=== PATIENT | female | born 1960 | race Caucasian/White ===

== ENCOUNTER 2017-07-13 10:21 | Emergency (ER) | payer OTHER ==
[2017-07-13] MEDS ORDERED: FENTANYL CITR 100 MCG/2 ML ONE (12:51)
[2017-07-13 12:56] LABS: Absolute Lymphocytes (CBC) 2.8 K/uL (0.7-4.9); Absolute Monocytes 0.8 K/uL (0.1-1.3); Absolute Neutrophil 6.2 K/uL (1.8-8.0); Basophils % 0.7 % (0-1.3); Eosinophils % 1.5 % (0-4.4); Hematocrit 43.7 % (36.0-45.0); Lymphocytes % 27.8 % (15.3-44.8); MCH 29.8 pg (27.0-35.0); MCV 89.8 fL (80-100); MPV 8.8 fL (7.6-11.3); Monocytes % 7.8 % (3.3-12.3); RBC Red Blood Cell Count 4.87 M/uL (3.86-4.86)
[2017-07-13 13:03] LABS: Protime INR 1.07
[2017-07-13 13:05] LABS: Bicarbonate 28 mEq/L (21-31); Glucose Level 125 mg/dL (65-120); Potassium 4.3 mEq/L (3.6-5.0); Sodium Level 136 mEq/L (135-145)
[2017-07-13 13:11] LABS: ALT/SGPT 18 IU/L (10-60); AST/SGOT 17 IU/L (10-42); Albumin 3.7 g/dL (3.2-5.5); Alkaline Phosphatase 122 IU/L (42-121); BUN Blood Urea Nitrogen 8 mg/dL (6-20); Bilirubin Direct 0.1 mg/dL (0-0.2); Bilirubin Total 0.6 mg/dL (0.3-1.2); Creatine Phosphokinase 47 IU/L (22-269); Glomerular Filtration Rate > 90 mL/min (=/>90); Magnesium 1.8 mg/dL (1.8-2.5); Protein, Total 7.9 g/dL (6.0-8.3)
[2017-07-13 13:31] LABS: Urine Blood NEGATIVE (NEG); Urine Glucose NEGATIVE (NEG); Urine Protein NEGATIVE (NEG); Urine Specific Gravity >1.030 (1.005-1.030)
--- NOTE | 2017-07-13 13:40 | RAD REPORT ---
EXAM DESCRIPTION: RAD - Chest Pa And Lat (2 Views) - 07/13/2017 1:24 pm CLINICAL HISTORY: Right-sided chest pain and back pain COMPARISON: January 2016 TECHNIQUE: PA and lateral views of the chest were obtained. FINDINGS: The lungs are normal volume. No peripheral consolidation or mass. Acute failure is not jamil pected. Patient has mild prominence of the interstitial markings that is believed to be baseline and similar to the comparison study. Single lead pacemaker remains in place. Trachea is midline. Heart size is normal and central vascul ature is within normal limits. No pleural effusion or pneumothorax seen. No acute bony finding note d. No aortic abnormality. IMPRESSION: No acute cardiopulmonary process. The above detailed chest findings are not substantial ly different from comparison.
--- NOTE | 2017-07-13 13:48 | RAD REPORT ---
EXAM DESCRIPTION: CT - Chest For Pe Angio - 07/13/2017 1:35 pm CLINICAL HISTORY: Chest pain, shortness of breath, right-sided back pain COMPARISON: Chest films same date TECHNIQUE: Dynamically enhanced 3 mm thick images of the chest were obtained during administration o f approximately 150mL Isovue 370 IV contrast. Coronal and oblique reconstruction images were generate d and reviewed. Exam utilizes a protocol to evaluate the pulmonary arterial tree. All CT scans are performed using dose optimization technique as appropriate and may include automated exposure control or mA/KV adjustment according to patient size. FINDINGS: No pulmonary emboli are identified. The aorta as imaged shows no acute or suspicious finding. No pericardial thickening or effusion. No infiltrate or mass in the lung parenchyma. No pleural effusion or pleural thickening. No mediastinal or hilar suspicious masses. No chest wall masses or abnormal axillary lymphadenopathy. Prominent thoracic spine degenerative spurring changes. No acute destructive vertebral body or rib f inding. IMPRESSION: No pulmonary emboli identified. No other significant or suspicious findings.
[2017-07-13 14:18] LABS: Urine Bacteria 20-50 /HPF (<20); Urine Culture Reflex Order REFLEXED; Urine RBC <5 /HPF (NONE SEEN)
[2017-07-13] MEDS ORDERED: ASPIRIN 81 MG CHEWABLE TABLET ONE ×2 (15:27→15:30)
[2017-07-13] MEDS ORDERED: TRAMADOL HCL 50 MG TAB ONE (15:28)
--- NOTE | 2017-07-13 16:15 | EDPHYS ---
Physician Documentation [facility] Name: Gia Doe Age: 57 yrs Sex: Female : 1960 Arrival Date: 07/13/2017 Time: 10:23 Bed 14 Private MD: ED Physician Parminder Hall HPI: 07/13 11:50 This 57 yrs old Female presents to ER via Ambulatory with complaints of Back rh1 Pain, chest pain, SOB. 11:50 The patient or guardian reports chest pain that is located primarily in the anterior rh1 aspect of right upper chest, right lateral posterior chest and right breast. Onset: 1 week(s) ago. 11:50 The pain radiates to right lateral posterior chest and anterior aspect of right upper rh1 chest. Associated signs and symptoms: Pertinent positives: cough, shortness of breath, Pertinent negatives: abdominal pain, diaphoresis, dizziness, headache, lower extremity pain, lower extremity swelling, lightheadedness, nausea, palpitations, syncope, vomiting. The chest pain is described as a heaviness, a pressure. Duration: The patient or guardian reports multiple episodes, that are intermittent. Modifying factors: The symptoms are alleviated by remaining still, the symptoms are aggravated by breathing, movement, palpation of area, twisting torso. Severity of pain: At its worst the pain was moderate in the emergency department the pain is unchanged. The patient has not experienced similar symptoms in the past. The patient has not recently seen a physician. Pt. reports pain at right scapular area for the past 1 week, that is worse with coughing, breathing, movement Pain radiates from right back around to right side of chest, and feels like "pressure, something sitting on my chest." Reports coughing for 1.5 weeks, with yellow sputum, denies any hemoptysis. Reports fever 2 days ago at 102. + SOB, worse with coughing. Denies any abdominal pain, vomiting, increased swelling in legs from her baseline, no diaphoresis. Since March she has been wearing home O2, due to persistent low O2 sat after back surgery.. Historical: - Allergies: 10:30 Codeine; hj 10:30 Morphine; hj - Home Meds: 10:30 carvedilol 50mg Oral tab 1 tab 2 times per day [Active]; Flexeril 5 mg Oral tab 1 tab 3 hj times per day [Active]; Lasix 40 mg Oral tab 1 tab once daily [Active]; levothyroxine 75 mcg tab 1 tab once daily [Active]; Lexapro 10 mg Oral tab 1 tab once daily [Active]; losartan 50 mg Oral tab 1 tab once daily [Active]; - PMHx: 10:30 Hypertension; Pacemaker; Thyroid problem; hj - PSHx: 10:30 finger surgery; Knee surgery; Tubal ligation; Cholecystectomy; partial hysterectomy; hj Carpal Tunnel Repair; back surgery; - Immunization history:: Adult Immunizations up to date. - Social history:: Smoking status: unknown. ROS: 11:50 ENT: Negative for injury, pain, and discharge. rh1 11:50 Constitutional: Positive for fever, Negative for body aches, fatigue, malaise, poor PO intake. 11:50 Cardiovascular: Positive for chest pain, Negative for edema, palpitations. 11:50 Respiratory: Positive for cough, with yellow sputum, dyspnea on exertion, shortness of breath, Negative for hemoptysis, wheezing. 11:50 Abdomen/GI: Negative for abdominal pain, nausea and vomiting. 11:50 Back: Positive for pain at rest, pain with movement, Negative for decreased range of motion. 11:50 MS/extremity: Negative for pain, paresthesias, swelling. 11:50 Skin: Negative for diaphoresis, rash. 11:50 Neuro: Negative for altered mental status, dizziness, headache, numbness, syncope, near syncope, tingling, weakness. 11:50 All other systems are negative. Exam: 11:50 Constitutional: This is a well developed, well nourished patient who is awake, alert, rh1 and in no acute distress. Head/Face: Normocephalic, atraumatic. ENT: Nares patent. No nasal discharge, no septal abnormalities noted. Tympanic membranes are normal and external auditory canals are clear. Oropharynx with no redness, swelling, or masses, exudates, or evidence of obstruction, uvula midline. Mucous membranes moist. Neck: Trachea midline, and no cervical lymphadenopathy. Supple, full range of motion without nuchal rigidity. No Meningismus. Chest/axilla: Normal chest wall appearance and motion. Nontender with no deformity. No lesions are appreciated. Cardiovascular: Regular rate and rhythm with a normal S1 and S2. No gallops, murmurs, or rubs. No JVD. No pulse deficits. Respiratory: Lungs have equal breath sounds bilaterally, clear to auscultation. No rales, rhonchi or wheezes noted. No increased work of breathing. Abdomen/GI: Soft, non-tender, with normal bowel sounds. No distension. No guarding or rebound. No evidence of tenderness throughout. 11:50 Skin: Warm, dry with normal turgor. Normal color with no rashes, no lesions, and no evidence of cellulitis. MS/ Extremity: Pulses equal, no cyanosis. Neurovascular intact. Full, normal range of motion. 11:50 Back: Exam negative for ecchymosis pain, that is moderate, of the right scapular area and right subscapular area, ROM is painful, with all movement, vertebral tenderness, is not appreciated, muscle spasm, is appreciated in the right scapular area and right subscapular area. 11:50 Musculoskeletal/extremity: DVT Exam: No signs of deep vein thrombosis. no pain, no swelling, no tenderness, negative Homans' sign noted on exam, no appreciated bluish discoloration, no erythema, no increased warmth, Calves: are non-tender, have equal circumference. 11:50 Neuro: Orientation: is normal, appropriate for stated age, to person, place \\T\\ time. Mentation: is normal, lucid, able to follow commands, Motor: is normal, moves all fours, strength is 5/5 in all extremities, Sensation: is normal, no obvious gross deficits, numbness, is not appreciated, tingling, is not appreciated, Gait: is steady, at a normal pace, without difficulty. Vital Signs: 10:30 BP 117 / 59; Pulse 86; Resp 18; Temp 97.8(TE); Pulse Ox 95% on R/A; Weight 146.51 kg; hj Height 5 ft. 8 in. (172.72 cm); Pain 10/10; 12:56 BP 127 / 76; Pulse 74; Resp 16; Temp 97.5; Pulse Ox 100% on R/A; la1 14:20 BP 124 / 65; Pulse 66; Resp 15; Pulse Ox 98% on R/A; la1 15:33 BP 123 / 64; Pulse 86; Resp 16; Temp 97.4; Pulse Ox 100% on R/A; la1 16:27 BP 130 / 64; Pulse 81; Resp 16; Temp 97.2; Pulse Ox 100% on R/A; la1 10:30 Body Mass Index 49.11 (146.51 kg, 172.72 cm) hj MDM: 11:50 Patient medically screened. [facility] 15:09 Data reviewed: vital signs, nurses notes, lab test result(s), EKG, radiologic studies, rh CT scan, plain films, and as a result, I will admit patient. Data interpreted: Pulse oximetry: on room air is 98 %. Interpretation: normal. Counseling: I had a detailed discussion with the patient and/or guardian regarding: the historical points, exam findings, and any diagnostic results supporting the discharge/admit diagnosis, lab results, radiology results, the need for further work-up and treatment in the hospital. 15:10 ED course: Pt. continues with chest pain, reports pain at right back and anterior rh1 chest, continues with SOB. Plan to admit for further evaluation of chest pain. 15:31 Physician consultation: Iram Altamirano MD was called at 15:31, was contacted at 15:31, [facility] in the emergency department to see patient at 15:31, spoke with Dr Toro who will see her in the office tomorrow. 07/13 11:49 Order name: Urine Microscopic Only; Complete Time: 14:30 [facility] 07/13 12:06 Order name: Basic Metabolic Panel; Complete Time: 13:16 07/13 12:06 Order name: BNP; Complete Time: 13:16 [facility] 07/13 12:06 Order name: CBC with Diff; Complete Time: 12:58 07/13 12:06 Order name: Ckmb; Complete Time: 13:16 07/13 12:06 Order name: CPK; Complete Time: 13:16 07/13 12:06 Order name: LFT's; Complete Time: 13:16 07/13 12:06 Order name: Magnesium; Complete Time: 13:16 07/13 12:06 Order name: PT-INR; Complete Time: 13:10 07/13 12:06 Order name: Ptt, Activated; Complete Time: 13:10 [facility] 07/13 12:06 Order name: Troponin (emerg Dept Use Only); Complete Time: 13:11 07/13 12:06 Order name: Blood Culture Adult (2) rh1 07/13 13:00 Order name: Urine Dipstick--Ancillary (enter results); Complete Time: 13:34 ag 07/13 14:19 Order name: Urine Culture EDMS 07/13 12:06 Order name: EKG; Complete Time: 12:34 rh07/13 12:06 Order name: Cardiac monitoring; Complete Time: 12:56 rh07/13 12:06 Order name: EKG - Nurse/Tech; Complete Time: 12:56 rh07/13 12:06 Order name: IV Saline Lock; Complete Time: 12:20 rh07/13 12:06 Order name: Labs collected and sent; Complete Time: 12:20 rh07/13 12:06 Order name: O2 Per Protocol; Complete Time: 12:20 rh07/13 12:06 Order name: O2 Sat Monitoring; Complete Time: 12:20 07/13 12:06 Order name: Urine Dipstick-Ancillary (obtain specimen); Complete Time: 12:56 07/13 12:06 Order name: Chest Pa And Lat (2 Views) XRAY; Complete Time: 13:43 rh07/13 13:12 Order name: CT Chest For PE Angio; Complete Time: 13:49 rh07/13 15:30 Order name: Troponin (emerg Dept Use Only); Complete Time: 16:13 ms 07/13 14:32 Order name: Misc. Order: repeat EKG and trop at 1600; Complete Time: 15:45 rh1 Administered Medications: 12:55 Drug: fentaNYL (PF) 25 mcg Route: IVP; Site: right antecubital; la1 14:32 Follow up: Response: No adverse reaction; Pain is decreased la1 15:24 Not Given (Other Intervention Used): fentaNYL (PF) 25 mcg IVP once la1 15:33 Drug: Aspirin Chewable Tablet 324 mg Route: PO; la1 15:57 Follow up: Response: No adverse reaction ss 15:33 Drug: traMADol 50 mg Route: PO; la1 15:58 Follow up: Response: No adverse reaction; Pain is decreased ss Disposition: 16:38 Co-signature as Attending Physician, Parminder Hall MD I agree with the assessment and kdr plan of care. Disposition: 07/13/17 16:14 Discharged to Home. Impression: Muscle spasm of back, Other chest pain, Shortness of breath. - Condition is Stable. - Discharge Instructions: Nonspecific Chest Pain, Muscle Cramps and Spasms, Shortness of Breath, Aspirin and Your Heart, Heat Therapy. - Prescriptions for Tramadol 50 mg Oral Tablet - take 1 tablet by ORAL route every 8 hours as needed; 12 tablet. - Medication Reconciliation Form, Thank You Letter, Antibiotic Education, Prescription Opioid Use form. - Follow up: Alex Downs; When: 1 - 2 days; Reason: Recheck today's complaints, Continuance of care, Re-evaluation by your physician. Follow up: Emergency Department; When: As needed; Reason: Fever > 102 F, If symptoms return, Trouble breathing, Worsening of condition. - Problem is new. - Symptoms have improved. Signatures: Dispatcher [employer] EDMS Parminder Hall MD MD kdr Jefferson Taylor RN RN laDora Walker NP [employer] rh1 Jose Lazaro RN RN hj Smirch, Shelby RN ss Corrections: (The following items were deleted from the chart) 12: 12:26 Misc. Order ordered. rh1 rh1 12:27 11:50 Pt. reports pain at right scapular area for the past 1 week, that is worse with rh1 coughing, breathing, movement Pain radiates from right back around to right side of chest, and feels like "pressure, something sitting on my chest." Reports coughing for 1.5 weeks, with yellow sputum, denies any hemoptysis. Reports fever 2 days ago at 102. + SOB, worse with coughing. Denies any abdominal pain, vomiting, increased swelling in legs from her baseline, no diaphoresis.. rh1 14:31 11:50 Pt. reports pain at right scapular area for the past 1 week, that is worse with rh1 coughing, breathing, movement Pain radiates from right back around to right side of chest, and feels like "pressure, something sitting on my chest." Reports coughing for 1.5 weeks, with yellow sputum, denies any hemoptysis. Reports fever 2 days ago at 102. + SOB, worse with coughing. Denies any abdominal pain, vomiting, increased swelling in legs from her baseline, no diaphoresis. Since March she has been wearing home O2, due to persistent low O2 sat after back surgery.. rh1
--- NOTE | 2017-07-13 16:15 | ER ---
Nurse's Notes [facility] Name: Gia Doe Age: 57 yrs Sex: Female : 1960 Arrival Date: 07/13/2017 Time: 10:23 Bed 14 Private MD: Diagnosis: Muscle spasm of back;Other chest pain;Shortness of breath Presentation: 07/13 10:27 Presenting complaint: Patient states: R back pain that started Friday before last and hj its getting worse; denies tingling and numbness on legs; hx of back surgery, May 2017. Transition of care: patient was not received from another setting of care. Onset of symptoms was July 13, 2017. Care prior to arrival: None. 10:27 Method Of Arrival: Ambulatory 10:27 Acuity: ANSHUL 4 hj Triage Assessment: 10:30 General: Appears in no apparent distress. uncomfortable, obese, Behavior is calm, hj cooperative, appropriate for age. Pain: Complains of pain in right low back. Musculoskeletal: Circulation, motion, and sensation intact. Capillary refill < 3 seconds. Historical: - Allergies: 10:30 Codeine; hj 10:30 Morphine; hj - Home Meds: 10:30 carvedilol 50mg Oral tab 1 tab 2 times per day [Active]; Flexeril 5 mg Oral tab 1 tab 3 hj times per day [Active]; Lasix 40 mg Oral tab 1 tab once daily [Active]; levothyroxine 75 mcg tab 1 tab once daily [Active]; Lexapro 10 mg Oral tab 1 tab once daily [Active]; losartan 50 mg Oral tab 1 tab once daily [Active]; - PMHx: 10:30 Hypertension; Pacemaker; Thyroid problem; hj - PSHx: 10:30 finger surgery; Knee surgery; Tubal ligation; Cholecystectomy; partial hysterectomy; hj Carpal Tunnel Repair; back surgery; - Immunization history:: Adult Immunizations up to date. - Social history:: Smoking status: unknown. Screenin:40 Abuse screen: Denies threats or abuse. Nutritional screening: No deficits noted. la1 Tuberculosis screening: No symptoms or risk factors identified. Fall Risk None identified. Assessment: 11:39 General: Appears in no apparent distress. Behavior is calm, cooperative. Pain: la1 Complains of pain in right low back. Neuro: Level of Consciousness is awake, alert, obeys commands, Gait is steady, Speech is normal, Facial symmetry appears normal. Cardiovascular: Capillary refill < 3 seconds Patient's skin is warm and dry. Respiratory: Airway is patent Respiratory effort is even, unlabored. GI: No signs and/or symptoms were reported involving the gastrointestinal system. : No signs and/or symptoms were reported regarding the genitourinary system. 11:40 Cardiovascular: Reports chest pain, Denies diaphoresis, lightheadedness, palpitations, la1 shortness of breath, Heart tones S1 S2 present Capillary refill < 3 seconds Rhythm is sinus rhythm. Respiratory: Airway is patent Respiratory effort is even, unlabored, Respiratory pattern is regular, symmetrical, Breath sounds are clear bilaterally. 13:11 Reassessment: Patient appears in no apparent distress at this time. No changes from la1 previously documented assessment. Patient and/or family updated on plan of care and expected duration. Pain level reassessed. 14:20 Reassessment: Patient appears in no apparent distress at this time. No changes from la1 previously documented assessment. Patient and/or family updated on plan of care and expected duration. Pain level reassessed. 14:32 Reassessment: pt to have ekg and trop repeated at 1600. la1 15:34 Reassessment: Patient appears in no apparent distress at this time. No changes from la1 previously documented assessment. Patient and/or family updated on plan of care and expected duration. Pain level reassessed. Patient is alert, oriented x 3, equal unlabored respirations, skin warm/dry/pink. Vital Signs: 10:30 BP 117 / 59; Pulse 86; Resp 18; Temp 97.8(TE); Pulse Ox 95% on R/A; Weight 146.51 kg; hj Height 5 ft. 8 in. (172.72 cm); Pain 10/10; 12:56 BP 127 / 76; Pulse 74; Resp 16; Temp 97.5; Pulse Ox 100% on R/A; la1 14:20 BP 124 / 65; Pulse 66; Resp 15; Pulse Ox 98% on R/A; la1 15:33 BP 123 / 64; Pulse 86; Resp 16; Temp 97.4; Pulse Ox 100% on R/A; la1 16:27 BP 130 / 64; Pulse 81; Resp 16; Temp 97.2; Pulse Ox 100% on R/A; la1 10:30 Body Mass Index 49.11 (146.51 kg, 172.72 cm) ED Course: 10:23 Patient arrived in ED. tw3 10:28 Triage completed. hj 10:30 Arm band placed on left wrist. hj 11:39 Jefferson Taylor, REBEKA is Primary Nurse. la1 11:40 Call light in reach. Side rails up X 1. la1 11:45 Dora Mauricio NP is PHCP. rh1 11:45 Parminder Hall MD is Attending Physician. rh1 12:26 No provider procedures requiring assistance completed. Inserted saline lock: 20 gauge la1 in right antecubital area, using aseptic technique. Blood collected. 13:14 Patient moved to radiology via wheelchair. ap2 13:15 Chest Pa And Lat (2 Views) XRAY In Process Unspecified. EDMS 13:36 CT Chest For PE Angio In Process Unspecified. EDMS 16:14 Alex Downs MD is Referral Physician. rh1 16:28 IV discontinued, intact, bleeding controlled, No redness/swelling at site. Pressure la1 dressing applied. Administered Medications: 12:55 Drug: fentaNYL (PF) 25 mcg Route: IVP; Site: right antecubital; la1 14:32 Follow up: Response: No adverse reaction; Pain is decreased la1 15:24 Not Given (Other Intervention Used): fentaNYL (PF) 25 mcg IVP once la1 15:33 Drug: Aspirin Chewable Tablet 324 mg Route: PO; la1 15:57 Follow up: Response: No adverse reaction ss 15:33 Drug: traMADol 50 mg Route: PO; la1 15:58 Follow up: Response: No adverse reaction; Pain is decreased ss Outcome: 16:14 Discharge ordered by . rh1 16:27 Discharged to home via wheelchair. la1 16:27 Condition: stable 16:27 Discharge instructions given to patient, Instructed on discharge instructions, follow up and referral plans. medication usage, Demonstrated understanding of instructions, follow-up care, medications, Prescriptions given X 1. 16:28 Patient left the ED. la1 Addendum: 07/17/2017 15:54 Addendum: Culture Results: Positive urine culture. Phone call Attempt #1 Not a working s s number. Signatures: Dispatcher [facility] Stefania Eric RN RN ss Jefferson Taylor RN RN la1 Dora Mauricio, [employer] DIRECTOR rh1 Jose Lazaro RN RN Tommy, Juliane tw3 Khadra Mendez Corrections: (The following items were deleted from the chart) 07/13 10:28 10:27 Presenting complaint: Patient states: R back pain that started Friday before last hj and its getting worse; denies tingling and numbness on legs; hj 10:33 10:30 Pulse 86bpm; Resp 18bpm; Pulse Ox 95% RA; Temp 97.8F Temporal; 146.51 kg; Height hj 5 ft. 8 in.; BMI: 49.1; Pain 01/07; hj
[2017-07-13 16:47] VITALS: O2SAT 100
[2017-07-13 16:48] VITALS: BP 130/64; TEMP 97.2
--- NOTE | 2017-07-13 22:30 | EKG ---
Test Date: 2017-07-13 Test Time: 12:37:45 Chief Airport Guide: MEASUREMENT RESULTS: Intervals: Rate: 73 RI: 166 QRSD: 88 QT: 422 QTc: 464 [place]: P: 34 RI: 166 QRS: 6 T: 13 INTERPRETIVE STATEMENTS: Normal sinus rhythm Normal ECG Compared to ECG 02/15/2016 11:28:04 No significant changes Electronically Signed On 07-13-17 22:29:49 CDT by Joe Gan
--- NOTE | 2017-07-14 07:37 | EKG ---
Test Date: 2017-07-13 Test Time: 15:48:17 E [employer] Director: MEASUREMENT RESULTS: Intervals: Rate: 67 SD: 160 QRSD: 82 QT: 424 QTc: 448 [place]: P: 34 SD: 160 QRS: 9 T: 37 INTERPRETIVE STATEMENTS: Normal sinus rhythm Normal ECG Compared to ECG 07/13/2017 12:37:45 No significant changes Electronically Signed On 07-14-17 07:37:22 CDT by Joe Gan
== END 2017-07-13 16:28 | disposition home or self-care (01) ==
LOC: ER 10:21
DX: R07.89 Other chest pain (principal); M62.830 Muscle spasm of back; I10 Essential (primary) hypertension; Z95.0 Presence of cardiac pacemaker; E07.9 Disorder of thyroid, unspecified; Z88.5 Allergy status to narcotic agent
CPT/HCPCS: 36415; 71046; 71275; 80048; 80076; 82550; 82553; 83735; 83880; 84484 ×2; 85025; 85610; 85730; 87040 ×2; 87077 ×2; 87086; 87088; 87186 ×2; 93005 ×2; 96374; 99284; J3010; Q9967; 81003; 81015

== ENCOUNTER 2018-06-19 13:39 | Emergency (ER) | payer OTHER ==
--- OUTSIDE RECORDS SUMMARY | 2018-06-19 13:42 | XMS REPORT ---
:1960 Author Organization [employer] Care Team Providers Name Role Phone Anthony Altamirano Provider Role Unavailable Allergies No Known Allergies Problems Problem Type Condition Code Onset Dates Condition Status Problem Bipolar disorder F31.9 Active Problem Edema R60.9 Active Problem Cardiac pacemaker Z95.0 Active Problem Body mass index (BMI) 45.0-49.9, Z68.42 Active adult Assessment Hypothyroidism E03.9 Active Problem Osteoarthritis of multiple joints M15.9 Active Assessment Benign essential HTN I10 Active Problem Asymptomatic hypertensive urgency I16.0 Active Problem Hypothyroidism E03.9 Active Problem Benign essential HTN I10 Active Problem Spinal stenosis of lumbosacral M48.07 Active region Problem Asthma J45.909 Active Problem Anxiety F41.9 Active Assessment Disc disease, degenerative, lumbar M51.37 Active or lumbosacral Assessment Bipolar disorder F31.9 Active Problem Hyperlipidemia, mixed E78.2 Active Problem Degenerative joint disease M19.90 Active Problem Tobacco use disorder F17.200 Active Problem Disc disease, degenerative, lumbar M51.37 Active or lumbosacral Problem Allergic rhinitis, seasonal J30.2 Active Problem Obstructive sleep apnea G47.33 Active Medications Medication Code Code Instructions Start End Status Dosage System Date Date Levothyroxine [facility] 05626746836 75 MCG Orally Active 1 tablet Sodium Once a day on an empty stomach in the morning Cozaar [facility] 84238667244 100 MG Orally Active 1 tablet Once a day Lyrica [facility] 95468679463 50MG orally Active 1 capsule Twice a day Lamictal [facility] 86181295313 100 MG Orally Active 2 tablets Twice a day Coreg [facility] 76157960750 25 MG Orally Active 1 tablet once a day Results No Known Results Summary Purpose [employer] Submission
--- OUTSIDE RECORDS SUMMARY | 2018-06-19 13:42 | XMS REPORT ---
:1960 Author Organization eClinicalWorks Care Team Providers Name Role Phone Anthony Altamirano Provider Role Unavailable Allergies No Known Allergies Problems Problem Type Condition Code Onset Dates Condition Status Problem Bipolar disorder F31.9 Active Problem Edema R60.9 Active Problem Cardiac pacemaker Z95.0 Active Problem Body mass index (BMI) 45.0-49.9, Z68.42 Active adult Problem Osteoarthritis of multiple joints M15.9 Active Problem Asymptomatic hypertensive urgency I16.0 Active Problem Hypothyroidism E03.9 Active Problem Benign essential HTN I10 Active Problem Spinal stenosis of lumbosacral M48.07 Active region Problem Asthma J45.909 Active Problem Anxiety F41.9 Active Assessment Hyperlipidemia, mixed E78.2 Active Problem Hyperlipidemia, mixed E78.2 Active Problem Degenerative joint disease M19.90 Active Problem Tobacco use disorder F17.200 Active Problem Disc disease, degenerative, lumbar M51.37 Active or lumbosacral Problem Allergic rhinitis, seasonal J30.2 Active Problem Obstructive sleep apnea G47.33 Active Medications Medication Code Code Instructions Start End Date Status Dosage System Date Simvastatin [facility][NOTE 3] 88701616185 20 MG Orally Active 1 tablet in Once a day the evening Results No Known Results Summary Purpose eClinicalWorks Submission
--- OUTSIDE RECORDS SUMMARY | 2018-06-19 13:42 | XMS REPORT ---
:1960 Author Organization eClinicalWorks Care Team Providers Name Role Phone Anthony Altamirano Provider Role Unavailable Allergies No Known Allergies Problems Problem Type Condition Code Onset Dates Condition Status Assessment Non compliance w medication regimen Z91.14 Active Assessment Body mass index (BMI) 45.0-49.9, Z68.42 Active adult Assessment Cardiac pacemaker Z95.0 Active Assessment Obstructive sleep apnea G47.33 Active Assessment Disc disease, degenerative, lumbar M51.37 Active or lumbosacral Assessment Tobacco use disorder F17.200 Active Problem Disc disease, degenerative, lumbar M51.37 Active or lumbosacral Assessment Anxiety F41.9 Active Problem Obstructive sleep apnea G47.33 Active Assessment Bipolar disorder F31.9 Active Problem Bipolar disorder F31.9 Active Problem Edema R60.9 Active Problem Cardiac pacemaker Z95.0 Active Problem Body mass index (BMI) 45.0-49.9, Z68.42 Active adult Problem Osteoarthritis of multiple joints M15.9 Active Assessment Benign essential HTN I10 Active Assessment Hypothyroidism E03.9 Active Problem Asymptomatic hypertensive urgency I16.0 Active Assessment Hyperlipidemia, mixed E78.2 Active Problem Hypothyroidism E03.9 Active Problem Benign essential HTN I10 Active Problem Spinal stenosis of lumbosacral M48.07 Active region Problem Asthma J45.909 Active Problem Anxiety F41.9 Active Assessment Acute cystitis without hematuria N30.00 Active Assessment Asymptomatic hypertensive urgency I16.0 Active Problem Hyperlipidemia, mixed E78.2 Active Problem Degenerative joint disease M19.90 Active Problem Tobacco use disorder F17.200 Active Problem Allergic rhinitis, seasonal J30.2 Active Medications Medication Code Code Instructions Start End Status Dosage System Date Date Klor-Con M10 [facility] 22868178698 10 MEQ Orally Active 1/2 Twice a day tablet with food Singulair ND 28219865648 10 MG Orally Active 1 tablet Once a day in the evening Flonase ND 14005074537 50 MCG/ACT Active 1 spray Nasally Once a in each day nostril Simvastatin ND 66865775577 20 MG Orally Active 1 tablet Once a day in the evening Levothyroxine [facility] 38728317273 75 MCG Orally Active 1 tablet Sodium Once a day on an empty stomach in the morning Lexapro [facility] 50639888446 20 MG Orally Active 0.5 Once a day tablet Coreg [facility] 79803267688 25MG Orally Active one once a day Vistaril [facility] 38359818582 25 MG Orally Active 1 capsule every 8 hrs PRN as needed anxiety Centrum Silver [facility] 95709899133 - Orally Active not defined Lamictal [facility] 00507018514 100 MG Orally Active 2 tablets Twice a day Cyclobenzaprine [facility] 77553509976 10 MG Orally Active 1 tablet HCl Three times a as needed day Simvastatin [facility] 86170045558 20MG Active take 1 tablet once daily orally Levothyroxine [facility] 78719375961 75MCG Active TAKE ONE Sodium TABLET BY MOUTH ONCE DAILY Nitrofurantoin [facility] 67356012384 100 MG Orally Nov 04Oct Active 1 capsule Monohyd Macro every 12 hrs 2017 12, with food 2018 Klor-Con M10 [facility] 92065182191 10 MEQ Orally Active 1/2 Twice a day tablet with food Furosemide [facility] 03588942378 20 MG Orally Inactive 1 tablet Once a day ProAir HFA [facility] 63087584684 108 (90 Base) Active 2 puffs MCG/ACT as needed Inhalation every 6 hrs Lyrica [facility] 72309054871 50MG orally BID Active TAKE ONE CAPSULE BY MOUTH TWICE DAILY Cozaar [facility] 92335712765 100 MG Orally Active 1 tablet Once a day Cozaar [facility] 24889464885 100 MG Orally Active 1 tablet Once a day Coreg [facility] 39568635342 25 MG Orally Active one once a day Hydrocodone-Acetam [facility] 07920139388 10-325 MG Aug Inactive 1 tablet inophen Orally every 6 07, as needed hrs 2017 Results No Known Results Summary Purpose eClinicalWorks Submission
--- OUTSIDE RECORDS SUMMARY | 2018-06-19 13:42 | XMS REPORT ---
:1960 Author Organization eClinicalWorks Care Team Providers Name Role Phone AltamiranoAnthony Provider Role Unavailable Allergies, Adverse Reactions, Alerts Substance Reaction Event Type Morphine Sulfate Itchy/Rash Drug Allergy Problems Problem Type Condition Code Onset Dates Condition Status Assessment Non compliance w medication regimen Z91.14 Active Assessment Spinal stenosis of lumbosacral M48.07 Active region Assessment Cardiac pacemaker Z95.0 Active Assessment Body mass index (BMI) 45.0-49.9, Z68.42 Active adult Assessment Obstructive sleep apnea G47.33 Active Assessment Disc disease, degenerative, lumbar M51.37 Active or lumbosacral Assessment Tobacco use disorder F17.200 Active Assessment Anxiety F41.9 Active Assessment Bipolar disorder F31.9 Active Problem Obstructive sleep apnea G47.33 Active Assessment 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 Problem Bipolar disorder F31.9 Active Assessment Hyperlipidemia, mixed E78.2 Active Problem Cardiac pacemaker Z95.0 Active Problem Benign essential HTN I10 Active Problem Edema R60.9 Active Problem Asymptomatic hypertensive urgency I16.0 Active Problem Body mass index (BMI) 45.0-49.9, Z68.42 Active adult Assessment Medicare annual wellness visit, Z00.00 Active subsequent Assessment Pain in left knee M25.562 Active Problem 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 Assessment Hypothyroidism E03.9 Active Problem Asthma J45.909 Active Problem Hypothyroidism E03.9 Active Problem Osteoarthritis of multiple joints M15.9 Active Problem Spinal stenosis of lumbosacral M48.07 Active region Assessment Osteoarthritis of multiple joints M15.9 Active Problem Anxiety F41.9 Active Assessment Allergic rhinitis, seasonal J30.2 Active Problem Tobacco use disorder F17.200 Active Assessment Encounter for screening mammogram Z12.31 Active for breast cancer Assessment Benign essential HTN I10 Active Assessment Other chronic pain G89.29 Active Problem Degenerative joint disease M19.90 Active Assessment Screening for colon cancer Z12.11 Active Problem Disc disease, degenerative, lumbar M51.37 Active or lumbosacral Problem Allergic rhinitis, seasonal J30.2 Active Problem Hyperlipidemia, mixed E78.2 Active Medications Medication Code Code Instructions Start End Status Dosage System Date Date Lamictal [facility] 02792606807 100 MG Orally Active 2 tablets Twice a day Lexapro [facility] 84370409575 20 MG Orally Active 0.5 tablet Once a day Centrum Silver [facility] 59242640950 - Orally Active not defined Lyrica [facility] 23891371840 50MG orally BID Active TAKE ONE CAPSULE BY MOUTH TWICE DAILY Risperidone [facility] 67314315155 0.25 MG Orally Active 1 tablet Once a day Cozaar [facility] 59093033705 100 MG Orally Active 1 tablet Once a day Simvastatin ND 42170614388 20 MG Orally Active 1 tablet Once a day in the evening Escitalopram [facility] 35901341656 10 MG Orally Active 1 tablet Oxalate Once a day Flonase [facility] 79877405453 50 MCG/ACT Active 1 spray in Nasally Once a each day nostril Flonase [facility] 03280321219 50 MCG/ACT Active 1 spray in Nasally Once a each day nostril Klor-Con M10 [facility] 76894112318 10 MEQ Orally Active 1/2 tablet Twice a day with food Amlodipine ND 99987861733 5 MG Orally Apr 28, Active 1 tablet Besylate Once a day 2019 Coreg [facility] 57674447214 25 MG Orally Active one once a day Chantix Starting [facility] 51453413766 0.5 MG X 11 & 1 Apr 28, May Active as Month Jarvis MG X 42 Orally 2018, directed Use as directed 2018 Levothyroxine [facility] 47626205936 75 MCG Orally Active 1 tablet Sodium Once a day on an empty stomach in the morning ProAir HFA [facility] 35688133347 108 (90 Base) Active 2 puffs as MCG/ACT needed Inhalation every 6 hrs Singulair [facility] 07262518523 10 MG Orally Active 1 tablet Once a day in the evening Vistaril [facility] 94465045241 25 MG Orally Active 1 capsule every 8 hrs PRN as needed anxiety Cyclobenzaprine [facility] 64835063919 10 MG Orally Active 1 tablet HCl Three times a as needed day Singulair [facility] 09483992830 10 MG Orally Active 1 tablet Once a day in the evening Results No Known Results Summary Purpose eClinicalWorks Submission
--- OUTSIDE RECORDS SUMMARY | 2018-06-19 13:42 | XMS REPORT ---
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 Problem Asthma J45.909 Active Problem Hypothyroidism E03.9 Active Problem Osteoarthritis of multiple joints M15.9 Active Problem Spinal stenosis of lumbosacral M48.07 Active region Problem Anxiety F41.9 Active Problem Tobacco use disorder F17.200 Active Problem Degenerative joint disease M19.90 Active Problem Disc disease, degenerative, lumbar M51.37 Active or lumbosacral Problem Allergic rhinitis, seasonal J30.2 Active Problem Obstructive sleep apnea G47.33 Active Problem Hyperlipidemia, mixed E78.2 Active Problem Bipolar disorder F31.9 Active Medications No Known Medications Results No Known Results Summary Purpose eClinicalWorks Submission
--- OUTSIDE RECORDS SUMMARY | 2018-06-19 13:43 | XMS REPORT ---
:1960 Author Organization eClinicalWorks Care Team Providers Name Role Phone Phillip Josue Provider Role Unavailable Allergies, Adverse Reactions, Alerts [...] disorder F17.200 Active Assessment Encounter for screening colonoscopy Z12.11 Active Problem Degenerative joint disease M19.90 Active Problem Disc disease, degenerative, lumbar M51.37 Active or lumbosacral Problem Allergic rhinitis, seasonal J30.2 Active Problem Obstructive sleep apnea G47.33 Active Problem Hyperlipidemia, mixed E78.2 Active Problem Bipolar disorder F31.9 Active Medications Medication Code Code Instructions Start End Status Dosage System Date Date Levothyroxine [facility] 78513360766 75 MCG Orally Active 1 tablet Sodium Once a day on an empty stomach in the morning Simvastatin ND 73209277217 20 MG Orally Active 1 tablet Once a day in the evening Centrum Silver [facility] 48483843265 - Orally Active not defined Cozaar ND 59247791529 100 MG Orally Active 1 tablet Once a day Singulair ND 47777334817 10 MG Orally Active 1 tablet Once a day in the evening Flonase [facility] 82581273159 50 MCG/ACT Active 1 spray in Nasally Once a each day nostril Lamictal ND 76615641833 100 MG Orally Active 2 tablets Twice a day Chantix Starting [facility] 36186937016 0.5 MG X 11 & 1 Active as Month Jarvis MG X 42 Orally directed Use as directed Lyrica [facility] 17245390258 50MG orally BID Active TAKE ONE CAPSULE BY MOUTH TWICE DAILY Escitalopram [facility] 75103676807 10 MG Orally Active 1 tablet Oxalate Once a day Risperidone [facility] 02007475196 0.25 MG Orally Active 1 tablet Once a day ProAir HFA [facility] 43649799383 108 (90 Base) Active 2 puffs as MCG/ACT needed Inhalation every 6 hrs PRN Shortness of breath, Wheeezing, COugh Macrobid [facility] 04089915281 100 MG Orally May Active 1 capsule every 12 hrs 05, 10, with food 2018 2018 Coreg [facility] 22620226286 25 MG Orally Active one once a day Cyclobenzaprine [facility] 35540262857 10 MG Orally Active 1 tablet HCl Three times a as needed day Lexapro [facility] 13277824095 20 MG Orally Active 0.5 tablet Once a day Vistaril [facility] 43600810085 25 MG Orally Active 1 capsule every 8 hrs PRN as needed anxiety Amlodipine [facility] 93639382659 5 MG Orally Active 1 tablet Besylate Once a day Results No Known Results Summary Purpose eClinicalWorks Submission
--- OUTSIDE RECORDS SUMMARY | 2018-06-19 13:43 | XMS REPORT ---
:1960 Author Organization eClinicalWorks Care Team Providers Name Role Phone Phillip Josue Provider Role Unavailable Allergies No Known Allergies [...]
--- OUTSIDE RECORDS SUMMARY | 2018-06-19 13:43 | XMS REPORT ---
:1960 Author Organization eClinicalWorks Care Team Providers Name Role Phone Altamirano, [facility] Provider Role Unavailable Allergies, Adverse Reactions, Alerts Substance Reaction Event Type Morphine Sulfate Itchy/Rash Drug Allergy Problems Problem Type Condition Code Onset Dates Condition Status Assessment Spinal stenosis of lumbosacral M48.07 Active region Assessment Allergic rhinitis, seasonal J30.2 Active Assessment Body mass index (BMI) 45.0-49.9, Z68.42 Active adult Assessment Non compliance w medication regimen Z91.14 Active Assessment Cardiac pacemaker Z95.0 Active Assessment Obstructive sleep apnea G47.33 Active Assessment Disc disease, degenerative, lumbar M51.37 Active or lumbosacral Assessment Tobacco use disorder F17.200 Active Assessment Anxiety F41.9 Active Problem Obstructive sleep apnea G47.33 Active Assessment Bipolar disorder F31.9 Active Problem Bipolar disorder F31.9 Active Assessment Pain in left knee M25.562 Active Problem Cardiac pacemaker Z95.0 Active Problem Benign essential HTN I10 Active Problem Edema R60.9 Active Problem Asymptomatic hypertensive urgency I16.0 Active Problem Body mass index (BMI) 45.0-49.9, Z68.42 Active adult Assessment Hypothyroidism E03.9 Active Assessment Hyperlipidemia, mixed E78.2 Active Problem 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 Assessment 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 Problem Asthma J45.909 Active Problem Hypothyroidism E03.9 Active Problem Osteoarthritis of multiple joints M15.9 Active Problem Spinal stenosis of lumbosacral M48.07 Active region Assessment Other chronic pain G89.29 Active Problem Anxiety F41.9 Active Assessment Osteoarthritis of multiple joints M15.9 Active Problem Tobacco use disorder F17.200 Active Assessment Benign essential HTN I10 Active Problem Degenerative joint disease M19.90 Active Problem Disc disease, degenerative, lumbar M51.37 Active or lumbosacral Problem Allergic rhinitis, seasonal J30.2 Active Problem Hyperlipidemia, mixed E78.2 Active Medications Medication Code Code Instructions Start End Status Dosage System Date Date Simvastatin [facility] 22858349735 20 MG Orally Active 1 tablet Once a day in the evening Coreg [facility] 12541461076 25 MG Orally Active one once a day Escitalopram [facility] 89212970198 10 MG Orally Active 1 tablet Oxalate Once a day Risperidone [facility] 14898178222 0.25 MG Orally Active 1 tablet Once a day Centrum Silver [facility] 41220356545 - Orally Active not defined Lexapro [facility] 91620592077 20 MG Orally Active 0.5 tablet Once a day Flonase [facility] 02257506418 50 MCG/ACT Active 1 spray in Nasally Once a each day nostril Singulair [facility] 11447836399 10 MG Orally Active 1 tablet Once a day in the evening Cozaar [facility] 88250987952 100 MG Orally Active 1 tablet Once a day Amlodipine [facility] 96534500454 5 MG Orally Active 1 tablet Besylate Once a day Cyclobenzaprine [facility] 00949092988 10 MG Orally Active 1 tablet HCl Three times a as needed day Lyrica [facility] 96453660419 50MG orally BID Active TAKE ONE CAPSULE BY MOUTH TWICE DAILY Chantix Starting [facility] 73926669524 0.5 MG X 11 & 1 Active as Month Jarvis MG X 42 Orally directed Use as directed Levothyroxine [facility] 93345687539 75 MCG Orally Active 1 tablet Sodium Once a day on an empty stomach in the morning ProAir HFA [facility] 63871067804 108 (90 Base) Active 2 puffs as MCG/ACT needed Inhalation every 6 hrs PRN Shortness of breath, Wheeezing, COugh Lamictal [facility] 86091112068 100 MG Orally Active 2 tablets Twice a day Vistaril [facility] 56391264906 25 MG Orally Active 1 capsule every 8 hrs PRN as needed anxiety Results No Known Results Summary Purpose eClinicalWorks Submission
--- OUTSIDE RECORDS SUMMARY | 2018-06-19 13:43 | XMS REPORT ---
[...] Start End Date Status Dosage System Date Macrobid [facility] 42070566772 100 MG Orally June 02, June 07, Active 1 capsule every 12 hrs 2018 2018 with food Results No Known Results Summary Purpose eClinicalWorks Submission
--- NOTE | 2018-06-19 14:34 | RAD REPORT ---
EXAM DESCRIPTION: RAD - Chest Single View - 06/19/2018 2:25 pm CLINICAL HISTORY: Headache, dizziness, cough COMPARISON: June 2017 TECHNIQUE: AP portable chest image was obtained 1421 hours . FINDINGS: Lungs are clear. Heart and vasculature are normal. No measurable pleural effusion and no p neumothorax. No acute bony abnormality seen. No acute aortic findings suspected. Left subclavian pace maker is in place. IMPRESSION: No acute cardiopulmonary process. No significant interval change.
[2018-06-19 14:48] LABS: Absolute Lymphocytes (CBC) 3.8 K/uL (0.7-4.9); Absolute Monocytes 0.6 K/uL (0.1-1.3); Absolute Neutrophil 3.6 K/uL (1.8-8.0); Basophils % 0.7 % (0-1.3); Eosinophils % 1.9 % (0-4.4); Hematocrit 43.6 % (36.0-45.0); Lymphocytes % 45.5 % (15.3-44.8); Monocytes % 7.8 % (3.3-12.3); RBC Red Blood Cell Count 4.79 M/uL (3.86-4.86)
[2018-06-19 14:49] LABS: Protime INR 1.13
--- NOTE | 2018-06-19 14:55 | RAD REPORT ---
EXAM DESCRIPTION: CT - Head Brain Wo Cont - 06/19/2018 2:40 pm CLINICAL HISTORY: Headache, dizziness, blurred vision COMPARISON: July 2008 TECHNIQUE: Axial 5 mm thick images of the head were obtained without IV contrast. All CT scans are performed using dose optimization technique as appropriate and may include automated exposure control or mA/KV adjustment according to patient size. FINDINGS: No intracranial hemorrhage, mass, edema or shift of mid-line structures. No acute infarcti on changes seen. No abnormal extra-axial fluid collections. Ventricles are normal. Mastoid air cells and visualized portions of the paranasal sinuses are clear. No acute bony findings. IMPRESSION: Negative non-contrast CT head examination for acute finding. No significant change from 2008.
[2018-06-19 15:07] LABS: ALT/SGPT 20 U/L (12-78); AST/SGOT 12 U/L (15-37); Albumin 3.3 g/dL (3.4-5.0); Alkaline Phosphatase 92 U/L (45-117); BUN Blood Urea Nitrogen 16 mg/dL (7-18); Bicarbonate 27 mmol/L (21-32); Bilirubin Direct 0.2 mg/dL (0-0.2); Bilirubin Total 0.5 mg/dL (0.2-1.0); Glucose Level 96 mg/dL (74-106); Magnesium 1.9 mg/dL (1.8-2.4); NT PRO-BNP 77 pg/mL (<125); Protein, Total 7.1 g/dL (6.4-8.2); Sodium Level 142 mmol/L (136-145); Troponin (Emerg Dept Use Only) < 0.02 ng/mL (0.0-0.045)
[2018-06-19] MEDS ORDERED: METOCLOPRAMIDE 10 MG/2mL INJ ONE (17:05)
[2018-06-19] MEDS ORDERED: DIPHENHYDRAMINE 50 MG/ML VIAL ONE (17:05)
[2018-06-19] MEDS ORDERED: NA CHLORIDE 0.9% 100 ML IV ONE (17:05)
[2018-06-19] MEDS ORDERED: KETOROLAC 30 MG/ML INJ ONE (17:05)
--- NOTE | 2018-06-19 17:14 | ER ---
Nurse's Notes [facility] Name: Gia Doe Age: 58 yrs Sex: Female : 1960 Arrival Date: 06/19/2018 Time: 13:40 Bed 19 Private MD: Anthony Altamirano Diagnosis: Headache;Strain of muscle, fascia and tendon at neck level Presentation: 06/19 13:56 Presenting complaint: Patient states: headache since Friday, head and shoulders. ch then I got dizzy, and had blurred vision. my doctor said to come ot the er. Transition of care: patient was not received from another setting of care. Onset of symptoms was June 17, 2018. Risk Assessment: Do you want to hurt yourself or someone else? Patient reports no desire to harm self or others. Initial Sepsis Screen: Does the patient meet any 2 criteria? No. Patient's initial sepsis screen is negative. Does the patient have a suspected source of infection? No. Patient's initial sepsis screen is negative. Care prior to arrival: None. 13:56 Method Of Arrival: Ambulatory 13:56 Acuity: ANSHUL 3 Triage Assessment: 13:58 Headache History: The patient has had previous headaches and this one is similar to previous episodes. General: Appears in no apparent distress. uncomfortable, Behavior is calm, cooperative, appropriate for age. Pain: Complains of pain in head, anterior aspect of right shoulder, posterior aspect of right shoulder, anterior aspect of left shoulder, posterior aspect of left shoulder and back of head Pain currently is 2 out of 10 on a pain scale. at worst was 8 out of 10 on a pain scale. Pain began gradually, 2-3 days ago. Also complains of nausea. Neuro: Level of Consciousness is awake, alert, obeys commands, Oriented to person, place, time, situation. Historical: - Allergies: 13:58 Codeine; 13:58 Morphine (agitation); - PMHx: 13:58 Hypertension; Pacemaker; Thyroid problem; Depression; - PSHx: 13:58 finger surgery; Knee surgery; Tubal ligation; Cholecystectomy; partial hysterectomy; Carpal Tunnel Repair; back surgery; - Immunization history:: Adult Immunizations up to date, Flu vaccine is up to date. - Social history:: Smoking status: Patient uses tobacco products, smokes one-half pack cigarettes per day, Patient/guardian denies using alcohol, street drugs. - Ebola Screening: : Patient negative for fever greater than or equal to 101.5 degrees Fahrenheit, and additional compatible Ebola Virus Disease symptoms Patient denies exposure to infectious person Patient denies travel to an Ebola-affected area in the 21 days before illness onset No symptoms or risks identified at this time. Screenin:20 Abuse screen: Denies threats or abuse. Denies injuries from another. Nutritional sv screening: No deficits noted. Tuberculosis screening: No symptoms or risk factors identified. Fall Risk None identified. Assessment: 14:20 General: Appears in no apparent distress. uncomfortable, well groomed, well developed, sv Behavior is calm, cooperative, appropriate for age. Pain: Complains of pain in top of head and forehead Pain currently is 2 out of 10 on a pain scale. Quality of pain is described as throbbing, Pain began 2-3 days ago. Is continuous. Neuro: Level of Consciousness is awake, alert, obeys commands, Oriented to person, place, time, situation, Moves all extremities. Full function Gait is steady, Speech is normal, Facial symmetry appears normal, Reports her dizziness was 2 days ago and has resolved.. Denies dizziness. Respiratory: Airway is patent Respiratory effort is even, unlabored, Respiratory pattern is regular, symmetrical, Denies shortness of breath. Derm: Skin is pink, warm \T\ dry. Musculoskeletal: Range of motion: intact in all extremities. 15:08 Reassessment: Patient appears in no apparent distress at this time. No changes from sv previously documented assessment. Patient and/or family updated on plan of care and expected duration. Pain level reassessed. Patient is alert, oriented x 3, equal unlabored respirations, skin warm/dry/pink. 15:54 Reassessment: Patient appears in no apparent distress at this time. No changes from sv previously documented assessment. Patient and/or family updated on plan of care and expected duration. Pain level reassessed. Patient is alert, oriented x 3, equal unlabored respirations, skin warm/dry/pink. 17:30 Reassessment: Patient appears in no apparent distress at this time. Patient and/or sv family updated on plan of care and expected duration. Pain level reassessed. Pt resting with eyes closed. Respirations even and unlabored. 18:49 Reassessment: Patient appears in no apparent distress at this time. Patient and/or sv family updated on plan of care and expected duration. Pain level reassessed. Patient is alert, oriented x 3, equal unlabored respirations, skin warm/dry/pink. Patient denies pain at this time. Patient states feeling better. Patient states symptoms have improved. Vital Signs: 13:58 BP 126 / 99; Pulse 62; Resp 18; Temp 98.2; Pulse Ox 98% on R/A; Weight 129.27 kg; ch Height 5 ft. 8 in. (172.72 cm); Pain 2/10; 14:31 BP 120 / 71 LA Supine (auto/reg); Pulse 60; sv 14:33 BP 106 / 87 LA Sitting (auto/reg); Pulse 64; sv 14:35 BP 129 / 81 LA Standing (auto/reg); Pulse 65; sv 15:03 BP 129 / 81; Pulse 69; Resp 17; Pulse Ox 92% on R/A; sv 15:51 BP 127 / 84; Pulse 66; Resp 16; Pulse Ox 95% 2 lpm ; sv 17:00 BP 112 / 77; Pulse 66; Resp 16; Pulse Ox 99% ; sv 18:48 BP 104 / 62; Pulse 70; Resp 16; Pulse Ox 99% ; sv 13:58 Body Mass Index 43.33 (129.27 kg, 172.72 cm) ch 14:35 Pt reports dizziness sv 15:03 Pt placed on O2 \T\ 2L per NC. O2 sat up to 96%. sv ED Course: 13:40 Patient arrived in ED. as 13:40 Anthony Altamirano DO is Private Physician. as 13:57 Triage completed. ch 13:58 Arm band placed on left wrist. Patient placed in an exam room, on a stretcher. ch 14:00 Enrike Kan NP is PHCP. pm1 14:00 Jonathan Casas MD is Attending Physician. pm1 14:20 Patient has correct armband on for positive identification. Placed in gown. Bed in low sv position. Call light in reach. equipment monitor phototypesetting on. Pulse ox on. NIBP on. Door closed. Head of bed lowered. 14:22 Doreen Nur, REBEKA is Primary Nurse. sv 14:24 X-ray completed. Portable x-ray completed in exam room. Patient tolerated procedure jb2 well. 14:25 XRAY Chest (1 view) In Process Unspecified. EDMS 14:25 Initial lab(s) drawn, by me, sent to lab. Inserted saline lock: 20 gauge in right sv antecubital area, using aseptic technique. Blood collected. Flushed right antecubital with 5 ml normal saline. 14:38 Basic Metabolic Panel Sent. sv 14:39 CT Head Brain wo Cont In Process Unspecified. EDMS 14:39 CT completed. Patient tolerated procedure well. Patient moved to CT via wheelchair. Patient moved back from CT. 14:54 EKG done, by [employer] technical architect. reviewed by Enrike Kan NP. at1 18:49 No provider procedures requiring assistance completed. IV discontinued, intact, sv bleeding controlled, No redness/swelling at site. Pressure dressing applied. Administered Medications: 16:58 Drug: Benadryl 25 mg Route: IVP; Site: right antecubital; sv 17:30 Follow up: Response: No adverse reaction; Marked relief of symptoms sv 17:00 Drug: TORadol 30 mg Route: IVP; Site: right antecubital; sv 17:30 Follow up: Response: No adverse reaction; Marked relief of symptoms sv 17:03 Drug: Reglan 10 mg {Note: to be given over 15 minutes.} Route: IVP; Site: right sv antecubital; 17:18 Follow up: Response: No adverse reaction sv Outcome: 17:14 Discharge ordered by MD. pm1 18:49 Discharged to home ambulatory. sv 18:49 Condition: stable 18:49 Discharge instructions given to patient, Instructed on discharge instructions, follow up and referral plans. no drinking with medication, no driving heavy equipment, medication usage, Demonstrated understanding of instructions, follow-up care, medications, Prescriptions given X 1. 19:09 Patient left the ED. aa1 Signatures: Dispatcher [employer] EDMS Mignon Colbert RN RN ch Verde, Stephanie, RN RN sv Autenrieth, Alissa, RN RN aa1 Cameron Guzman jbChrystal Gann Amelia as Gonzales, Amanda, general road production manager EKG Tat1 Enrike Kan, CAFETERIA MANAGER CAFETERIA MANAGER pm1 Corrections: (The following items were deleted from the chart) 15:08 15:03 BP 129 / 81; Pulse 69bpm; Resp 17bpm; Pulse Ox 92% RA; sv sv 15:54 14:35 BP 129 / 81 Standing Auto L Arm Regular; Pulse 65bpm; sv sv
--- NOTE | 2018-06-19 17:14 | EDPHYS ---
Physician Documentation [facility] Name: Gia Doe Age: 58 yrs Sex: Female : 1960 Arrival Date: 06/19/2018 Time: 13:40 Bed 19 Private MD: [facility] ED Physician Jonathan Casas HPI: 06/19 14:10 This 58 yrs old Female presents to ER via Ambulatory with complaints of pm1 Headache. 14:10 The patient complains of pain to the top of head, left base of the skull and right base pm1 of the skull. The patient describes the headache as aching, constant. Onset: The symptoms/episode began/occurred 2 day(s) ago. Associated signs and symptoms: Pertinent positives: dizziness, blurred vision, Pertinent negatives: fever, rash, weakness. Severity of symptoms: in the emergency department the pain is unchanged. Headache History: Denies prior headaches. The symptoms are alleviated by remaining still, the symptoms are aggravated by headache and dizziness aggravated by changes in position. The patient has not experienced similar symptoms in the past. The patient has not recently seen a physician, the patient's primary care provider is Dr. Altamirano. Historical: - Allergies: 13:58 Codeine; ch 13:58 Morphine (agitation); ch - PMHx: 13:58 Hypertension; Pacemaker; Thyroid problem; Depression; ch - PSHx: 13:58 finger surgery; Knee surgery; Tubal ligation; Cholecystectomy; partial hysterectomy; ch Carpal Tunnel Repair; back surgery; - Immunization history:: Adult Immunizations up to date, Flu vaccine is up to date. - Social history:: Smoking status: Patient uses tobacco products, smokes one-half pack cigarettes per day, Patient/guardian denies using alcohol, street drugs. - Ebola Screening: : Patient negative for fever greater than or equal to 101.5 degrees Fahrenheit, and additional compatible Ebola Virus Disease symptoms Patient denies exposure to infectious person Patient denies travel to an Ebola-affected area in the 21 days before illness onset No symptoms or risks identified at this time. ROS: 14:10 Constitutional: Negative for fever, chills, and weight loss, Eyes: Negative for injury, pm1 pain, redness, and discharge, ENT: Negative for injury, pain, and discharge, Neck: Negative for injury, pain, and swelling, Cardiovascular: Negative for chest pain, palpitations, and edema, Respiratory: Negative for shortness of breath, cough, wheezing, and pleuritic chest pain, Abdomen/GI: Negative for abdominal pain, nausea, vomiting, diarrhea, and constipation, Back: Negative for injury and pain, : Negative for injury, bleeding, discharge, and swelling, MS/Extremity: Negative for injury and deformity, Skin: Negative for injury, rash, and discoloration. 14:10 Neuro: Positive for dizziness, headache, Negative for numbness, tingling, weakness. Exam: 14:10 Constitutional: This is a well developed, well nourished patient who is awake, alert, pm1 and in no acute distress. Eyes: Pupils equal round and reactive to light, extra-ocular motions intact. Lids and lashes normal. Conjunctiva and sclera are non-icteric and not injected. Cornea within normal limits. Periorbital areas with no swelling, redness, or edema. 14:10 Chest/axilla: Normal chest wall appearance and motion. Nontender with no deformity. No lesions are appreciated. Cardiovascular: Regular rate and rhythm with a normal S1 and S2. No gallops, murmurs, or rubs. Normal PMI, no JVD. No pulse deficits. Respiratory: Lungs have equal breath sounds bilaterally, clear to auscultation and percussion. No rales, rhonchi or wheezes noted. No increased work of breathing, no retractions or nasal flaring. Abdomen/GI: Soft, non-tender, with normal bowel sounds. No distension or tympany. No guarding or rebound. No evidence of tenderness throughout. Back: No spinal tenderness. No costovertebral tenderness. Full range of motion. Skin: Warm, dry with normal turgor. Normal color with no rashes, no lesions, and no evidence of cellulitis. MS/ Extremity: Pulses equal, no cyanosis. Neurovascular intact. Full, normal range of motion. 14:10 Head/face: Noted is no obvious of injury or deformity except tenderness, that is moderate, of the right base of the skull and left base of the skull and top of head. 14:10 Neck: External neck: tenderness, of the left trapezius and right trapezius, muscle spasm. 14:10 Neuro: Orientation: is normal, Mentation: is normal, Cranial nerves: CN II- XII are normal as tested, Cerebellar function: normal finger to nose testing, Motor: moves all fours, strength is normal, strength is 5/5 in all extremities, Sensation: is normal, no obvious gross deficits, Gait: is steady, at a normal pace, without difficulty. Vital Signs: 13:58 BP 126 / 99; Pulse 62; Resp 18; Temp 98.2; Pulse Ox 98% on R/A; Weight 129.27 kg; ch Height 5 ft. 8 in. (172.72 cm); Pain 2/10; 14:31 BP 120 / 71 LA Supine (auto/reg); Pulse 60; sv 14:33 BP 106 / 87 LA Sitting (auto/reg); Pulse 64; sv 14:35 BP 129 / 81 LA Standing (auto/reg); Pulse 65; sv 15:03 BP 129 / 81; Pulse 69; Resp 17; Pulse Ox 92% on R/A; sv 15:51 BP 127 / 84; Pulse 66; Resp 16; Pulse Ox 95% 2 lpm ; sv 17:00 BP 112 / 77; Pulse 66; Resp 16; Pulse Ox 99% ; sv 18:48 BP 104 / 62; Pulse 70; Resp 16; Pulse Ox 99% ; sv 13:58 Body Mass Index 43.33 (129.27 kg, 172.72 cm) ch 14:35 Pt reports dizziness sv 15:03 Pt placed on O2 \T\ 2L per NC. O2 sat up to 96%. sv MDM: 14:01 Patient medically screened. pm1 17:08 Data reviewed: vital signs. Data interpreted: Pulse oximetry: on room air is 95 %. pm1 Interpretation: normal. Counseling: I had a detailed discussion with the patient and/or guardian regarding: the historical points, exam findings, and any diagnostic results supporting the discharge/admit diagnosis, lab results, radiology results, the need for outpatient follow up, to return to the emergency department if symptoms worsen or persist or if there are any questions or concerns that arise at home. 06/19 14:10 Order name: Basic Metabolic Panel pm1 06/19 14:10 Order name: CBC with Diff; Complete Time: 15:08 pm1 06/19 14:10 Order name: LFT's; Complete Time: 15:08 pm1 06/19 14:10 Order name: Magnesium; Complete Time: 15:08 pm1 06/19 14:10 Order name: NT PRO-BNP; Complete Time: 15:08 pm1 06/19 14:10 Order name: PT-INR; Complete Time: 14:56 pm1 06/19 14:10 Order name: CT Head Brain wo Cont; Complete Time: 14:56 pm1 06/19 14:10 Order name: Troponin (emerg Dept Use Only); Complete Time: 15:08 pm1 06/19 14:10 Order name: XRAY Chest (1 view); Complete Time: 14:35 pm1 06/19 14:11 Order name: Basic Metabolic Panel; Complete Time: 15:08 EDMS 06/19 14:10 Order name: EKG; Complete Time: 14:11 pm1 06/19 14:10 Order name: Cardiac monitoring; Complete Time: 14:38 pm1 06/19 14:10 Order name: EKG - Nurse/Tech; Complete Time: 17:04 pm1 06/19 14:10 Order name: IV Saline Lock; Complete Time: 14:38 pm1 06/19 14:10 Order name: Labs collected and sent; Complete Time: 14:38 pm1 06/19 14:10 Order name: O2 Per Protocol; Complete Time: 14:38 pm1 06/19 14:10 Order name: O2 Sat Monitoring; Complete Time: 14:38 pm1 06/19 14:11 Order name: Orthostatic Blood Pressure; Complete Time: 14:37 pm1 Administered Medications: 16:58 Drug: Benadryl 25 mg Route: IVP; Site: right antecubital; sv 17:30 Follow up: Response: No adverse reaction; Marked relief of symptoms sv 17:00 Drug: TORadol 30 mg Route: IVP; Site: right antecubital; sv 17:30 Follow up: Response: No adverse reaction; Marked relief of symptoms sv 17:03 Drug: Reglan 10 mg {Note: to be given over 15 minutes.} Route: IVP; Site: right sv antecubital; 17:18 Follow up: Response: No adverse reaction sv Disposition: 06/19/18 17:14 Discharged to Home. Impression: Headache, Strain of muscle, fascia and tendon at neck level. - Condition is Stable. - Discharge Instructions: General Headache Without Cause, Tension Headache, Adult, Muscle Strain. - Prescriptions for Cyclobenzaprine 10 mg Oral Tablet - take 1 tablet by ORAL route every 8 hours As needed; 30 tablet. - Medication Reconciliation Form, Thank You Letter, Antibiotic Education, Prescription Opioid Use form. - Follow up: Emergency Department; When: As needed; Reason: Worsening of condition. Follow up: Private Physician; When: 2 - 3 days; Reason: Recheck today's complaints, Continuance of care, Re-evaluation by your physician. - Problem is new. - Symptoms have improved. Addendum: 06/22/2018 10:10 Co-signature as Attending Physician, Jonathan Casas MD I agree with the assessment and c hernandez plan of care. Signatures: Dispatcher [employer] EDMS Mignon Colbert, RN RN Doreen Patrick RN RN [place] Brooks RN RN aa1 Jonathan Casas MD MD cha Marinas, Patrick, COLOR SEPARATION PHOTOGRAPHER COLOR SEPARATION PHOTOGRAPHER pm1 Corrections: (The following items were deleted from the chart) 06/19 19:09 17:14 06/19/2018 17:14 Discharged to Home. Impression: Headache; Strain of muscle, aa1 fascia and tendon at neck level. Condition is Stable. Forms are Medication Reconciliation Form, Thank You Letter, Antibiotic Education, Prescription Opioid Use. Follow up: Emergency Department; When: As needed; Reason: Worsening of condition. Follow up: Private Physician; When: 2 - 3 days; Reason: Recheck today's complaints, Continuance of care, Re-evaluation by your physician. Problem is new. Symptoms have improved. pm1
[2018-06-19 19:18] VITALS: TEMP 98.2
[2018-06-19 19:29] VITALS: O2SAT 99
[2018-06-19 19:30] VITALS: BP 104/62
--- NOTE | 2018-06-19 21:16 | EKG ---
Test Date: 2018-06-19 Test Time: 14:44:45 [place] Leadperson: DENISE MEASUREMENT RESULTS: Intervals: Rate: 63 RI: 178 QRSD: 86 QT: 440 QTc: 450 [place]: P: 50 RI: 178 QRS: 15 T: -3 INTERPRETIVE STATEMENTS: Demand pacemaker, interpretation is based on intrinsic rhythm Sinus rhythm with premature paced complexes Nonspecific ST and T wave abnormality Abnormal ECG Compared to ECG 07/13/2017 15:48:17 Paced complex(es) now present Electronically Signed On 06-19-18 21:15:59 CDT by Joe Gan
== END 2018-06-19 19:09 | disposition home or self-care (01) ==
LOC: ER 13:39
DX: R51 Headache (principal); S16.1XXA Strain of muscle, fascia and tendon at neck level, initial encounter; R42 Dizziness and giddiness; I10 Essential (primary) hypertension; F32.9 Major depressive disorder, single episode, unspecified; Z95.0 Presence of cardiac pacemaker; Z88.5 Allergy status to narcotic agent
CPT/HCPCS: 93005; 85025; 80048; 36415; 83735; 85610; 80076; 84484; 83880; 70450; 71045; 96375; 96374; 99285; J2765

== ENCOUNTER 2021-08-02 15:16 | Emergency (ER) | payer OTHER ==
--- OUTSIDE RECORDS SUMMARY | 2021-08-02 15:19 | XMS REPORT | Continuity of Care Document ---
:1960 Author Organization [facility] t Address [address] [place] [address] Care Team Providers Name Role Phone JohanDwaine Primary Care Physician Mellissa Altamirano Attending Clinician Unavailable SYSTEM, NOT IN Attending Clinician Unavailable KOBE COVINGTON Attending Clinician Unavailable ALIA CASTRO Attending Clinician Unavailable Kobe Covington MD Attending Clinician Payers Payer Name Policy Type Policy Effective Date Expiration Date [facility] ce Number HUMANA [id number] 2019 MD Casas MEDICAREHUMANA GOLD 00:00:00 PLUS MEDICARE [id number] 2019 -Present [address] [place] [id number] Problems Condition Condition Condition Status Onset Resolution Last Treating Co mments Source Name Details Category Date Date Treatment Clinician Date Other Other Disease Active Univers urinary urinary 9-24 ity of [place] [facility] Allergies, Adverse Reactions, Alerts Allergy Allergy Status Severity Reaction(s) Onset Inactive Treating Comm ents Source Name Type Date Date Clinician Dino Issa Active Unknown - High Univ ers ty to See comments 9-24 doses ity of adverse 00:00: over 7.5 [place] reaction 00 Medical s to Branch drug Morphine Propensi Active Unknown - Uni vers ty to See comments 12-22 ity of adverse 00:00: [place] reaction 00 Medical s to Branch drug CODEINE DRUG Active High Unknown-Cmnt Uni vers INGREDI 12-22 ity of 00:00: [place] 00 Medical Branch MORPHINE DRUG Active High Unknown-Cmnt Un destini INGREDI 12-22 ity of 00:00: [place] 00 Medical Branch Morphine Adverse Active Itchy/Rash [facility] Reaction [facility] NO KNOWN Drug Active Univers ALLERGIE Class ity of S [facility] Social History Social Habit Start Date Stop Date Quantity Comments Source Exposure to Not sure MD Casas SARS-CoV-2 (event) History of tobacco Cigarette Smoker University of use [facility] Cigarettes smoked 2020-12-22 2020-12-22 Univers ity of current (pack per 00:00:00 00:00:00 ) - Reported Branch Tobacco use and 2020-12-22 2020-12-22 Never used Universit y of exposure 00:00:00 00:00:00 [facility] Alcohol intake 2020-12-22 2020-12-22 Current drinker Unive rsity of 00:00:00 00:00:00 of alcohol [facility] (finding) Bunch Sex Assigned At [birth year] MD Schuler on 00:00:00 00:00:00 Smoking Status Start Date Stop Date Source Current every day smoker 2020-12-22 00:00:00 Uni versity of [facility] Medications Ordered Filled Start Stop Current Ordering Indication Dosage Frequency Signature Comments Components Source Medication Medication Date Date Medication? Clinician (SIG) Name Name ALBUTEROL Yes Inhale. Unive rs INHALE 12-22 ity of 10:29: [place] 41 Medical Branch acetaminoph Yes Take by Un destini en (TYLENOL 12-22 mouth. ity of ARTHRITIS 10:29: [place] ORAL) Medical Branch ergocalcife Yes Take by Un destini rol, 12-22 mouth. ity of vitamin D2, 10:29: [place] (VITAMIN D2 41 Medical ORAL) Branch vitamin B Yes Take by Univ ers complex 9-24 mouth. ity of (B-COMPLEX 10:29: [place] ORAL) Medical Branch omega-3 Yes 1000mg Take 1,000 Un destini fatty acids 9-24 mg by ity of capsule 10:29: mouth [address] [place] [address] (three) Medical times Bunch daily with meals. FLAXSEED Yes Univers OIL MISC 9-24 ity of 10:29: [address] aspirin 81 Yes Take by Uni vers mg Cap 9- mouth. ity of 10:29: [address] CALCIUM Yes Take by Univer s ORAL -24 mouth. ity of 10:29: [address] ascorbic Yes 500mg Take 500 Univ ers acid, 9-24 mg by ity of vitamin C, 10:29: mouth. [place] (VITAMIN C) Medical 500 mg Branch tablet potassium Yes Take by Univ ers (POTASSIMIN - mouth. ity of ORAL) 10:29: [address] MAGNESIUM Yes Take by Univ ers ORAL -24 mouth. ity of 10:29: [address] IBUPROFEN, Yes Univers BULK, MISC 12-22 ity of 10:29: [address] Branch triamcinolo Yes Use in Uni vers ne 12-22 each ity of acetonide 10:29: [place] (NAS[place] Medical ALLERGY Branch NASAL) ALBUTEROL Yes Inhale. Unive rs INHALE 12-22 ity of 10:29: [address] Branch acetaminoph Yes Take by Un destini en (TYLENOL 12-22 mouth. ity of ARTHRITIS 10:29: [place] ORAL) [address] [place] [address] Branch ergocalcife Yes Take by Un destini rol, 9-24 mouth. ity of vitamin D2, 10:29: [place] (VITAMIN D2 Medical ORAL) Branch vitamin B Yes Take by Univ ers complex 9-24 mouth. ity of (B-COMPLEX 10:29: [place] ORAL) Medical Branch omega-3 Yes 1000mg Take 1,000 Un destini fatty acids 9-24 mg by ity of capsule 10:29: mouth [address] [place] [address] (three) Medical times Branch daily with meals. FLAXSEED Yes Univers OIL MISC 9-24 ity of 10:29: [place] [address] Medical Branch aspirin 81 Yes Take by Uni vers mg Cap 9-24 mouth. ity of 10:29: [place] [address] Medical Branch CALCIUM Yes Take by Univer s ORAL 9-24 mouth. ity of 10:29: [place] [address] Medical Branch ascorbic Yes 500mg Take 500 Univ ers acid, 9-24 mg by ity of vitamin C, 10:29: mouth. [place] (VITAMIN C) Medical 500 mg Branch tablet potassium Yes Take by Univ ers (POTASSIMIN 9-24 mouth. ity of ORAL) 10:29: [place] [address] Medical Branch MAGNESIUM Yes Take by Univ ers ORAL 9-24 mouth. ity of 10:29: [place] [address] Medical Branch IBUPROFEN, Yes Univers BULK, MISC 12-22 ity of 10:29: [place] [address] Medical Branch triamcinolo Yes Use in Uni vers ne 24 each ity of acetonide 10:29: [place] ([place] Medical ALLERGY Branch NASAL) losartan Yes 100mg Take 100 Univ ers 100 mg 9-22 mg by ity of tablet 00:00: mouth [place] daily. Medical Branch cyclobenzap Yes 10mg Take 10 mg Univers rine 10 mg 9-22 by mouth 2 ity of tablet 00:00: (two) [place] times Medical daily. Branch amLODIPine Yes 5mg Take 5 mg Un destini 5 mg tablet 9-22 by mouth ity of 00:00: daily. Medical Branch losartan Yes 100mg Take 100 Univ ers 100 mg 9-22 mg by ity of tablet 00:00: mouth [place] daily. Medical Branch cyclobenzap Yes 10mg Take 10 mg Univers rine 10 mg 9-22 by mouth 2 ity of tablet 00:00: (two) [place] times Medical daily. Branch amLODIPine Yes 5mg Take 5 mg Un destini 5 mg tablet 9-22 by mouth ity of 00:00: daily. Medical Branch levothyroxi Yes 75ug Take 75 Uni vers ne 75 mcg 9-12 mcg by ity of tablet 00:00: mouth [place] [address] every Medical morning. Branch lamoTRIgine 0 Yes 25mg Take 25 mg Univers 25 mg 9-12 by mouth 2 ity of tablet 00:00: (two) [place] 00 times Medical daily. Branch hydrOXYzine 0 Yes Univer s 25 mg 9-12 ity of capsule 00:00: [place] 00 Medical Branch levothyroxi 2020-0 Yes 75ug Take 75 Uni vers ne 75 mcg 9-12 mcg by ity of tablet 00:00: mouth [place] 00 every Medical morning. Branch lamoTRIgine Yes 25mg Take 25 mg Univers 25 mg 9-12 by mouth 2 ity of tablet 00:00: (two) [place] 00 times Medical daily. Branch hydrOXYzine 0 Yes Univer s 25 mg 9-12 ity of capsule 00:00: [place] [address] Medical Branch carvediloL 2020-0 Yes 25mg Take 25 mg U nivers 25 mg 8-20 by mouth ity of tablet 00:00: daily. [place] Medical Branch carvediloL 2020-0 Yes 25mg Take 25 mg U nivers 25 mg 8-20 by mouth ity of tablet 00:00: daily. [place] Medical Branch simvastatin 2020-0 Yes 20mg Take 20 mg Univers 20 mg 8-09 by mouth ity of tablet 00:00: at [place] [address] bedtime. Medical Branch celecoxib 2020-0 Yes 100mg Take 100 Uni vers 100 mg 8-09 mg by ity of capsule 00:00: mouth 2 [place] (two) Medical times Branch daily with meals. simvastatin 2020-0 Yes 20mg Take 20 mg Univers 20 mg 8-09 by mouth ity of tablet 00:00: at [place] [address] bedtime. Medical Branch celecoxib 2020-0 Yes 100mg Take 100 Uni vers 100 mg 8-09 mg by ity of capsule 00:00: mouth 2 [place] [address] (two) Medical times Branch daily with meals. BusPIRone BusPIRone 0 Yes Anthony [address] [facility] [facility] HCl HCl 3-11 Adarsh Candelario - 00:00: [facility] l Outpat[facility] ent Clinics Chantix Chantix Yes Anthony [address] Contin[facility] Continuing 08-26 Alt[place] Lu kes - Month Jarvis Month Jarvis 00:00: Mem oria 00 l Outpati ent Clinics Lyrica Lyrica Yes Anthony TAKE ONE [facility] [place] CAPSULE BY [facility] - MOUTH Memoria TWICE l DAILY Outpati ent Clinics ProAir HFA ProAir HFA Yes Anthony [address] [facility] [facility] needed [facility] Lexapro Lexapro Yes Anthony [address] [facility] Cozaar Cozaar Yes Anthony 1 tablet [facility] Cyclobenzap Cyclobenzap Yes Anthony [address] [facility] [facility] rine HCl rine HCl Altamirano as needed [facility] Flonase Flonase Yes Anthony 1 spray [address] [facility] each [facility] nostril [facility] Potassium Potassium Yes Anthony [address] [facility] [facility] Fish Oil Fish Oil Yes Anthony [address] [facility] [place] [facility] B Complex B Complex Yes Anthony as [facility] directed [facility] Risperidone Risperidone Yes Anthony [address] [facility] [place] [facility] Levothyroxi Levothyroxi Yes Anthony [address] [facility] ne Sodium ne Sodium Altamirano on an Maurice es - empty Memoria stomach in l the Outpati morning ent Clinics Simvastatin Simvastatin Yes Anthony [address] [facility] [place] in the [facility] - evening Memoria l Outpati ent Clinics Lyrica Lyrica Yes Anthony take one [facility] capsule by [facility] - mouth Memoria twice l daily Outpati ent Clinics Centrum Centrum Yes Anthony not [facility] Silver Silver [facility] defined [facility]ics Singulair Singulair Yes Anthony [address] [facility] [place] in the [facility]ics Multivitami Multivitami Yes Anthony as [facility] n Adult n Adult [place]ano directed [facility] Tumersaid Tumersaid Yes Anthony as [facility] directed [facility] Coreg Coreg Yes Anthony one [facility] Tylenol Tylenol Yes Anthony not [facility] NightTime NightTime [place] defined L ukes - Cold & Flu Cold & Flu [facility] Vitamin C Vitamin C Yes Anthony [address] [facility] [facility] Amlodipine Amlodipine Yes Anthony [address] [facility] Besylate Besylate [facility] Lamictal Lamictal Yes Anthony [address] [facility] [place] [facility] Vistaril Vistaril Yes Anthony [address] [facility] [place] as needed [facility] Immunizations Ordered Filled Immunization Date Status Comments [facility] e Immunization Name Name Moderna SARS-CoV-2 2020-09-04 Completed MD And erson Vaccination 00:00:00 SARS-COV-2 COVID-19 2020-09-04 Completed Unive rsity of MODERNA VACCINE 00:00:[address] [facility] SARS-COV-2 COVID-19 2020-09-04 Completed Unive rsity of MODERNA VACCINE 00:00:[address] [facility] Moderna SARS-CoV-2 2020-08-04 Completed MD And erson Vaccination 00:00:00 SARS-COV-2 COVID-19 2020-08-04 Completed Unive rsity of MODERNA VACCINE 00:00:[address] [facility] SARS-COV-2 COVID-19 2020-08-04 Completed Unive rsity of MODERNA VACCINE 00:00:[address] [facility] Vital Signs Vital Name Observation Time Observation Value Comments Source Systolic blood 2020-12-22 15:35:00 112 mm[Hg] Univer sity of pressure [facility] Diastolic blood 2020-12-22 15:35:00 70 mm[Hg] Unive rsity of pressure [facility] Heart rate 2020-12-22 15:35:00 77 /min [facility] Body temperature 2020-12-22 15:35:00 36.78 [facility] Respiratory rate 2020-12-22 15:35:00 18 /min [facility] Body height 2020-12-22 15:35:00 170.2 cm [facility] Body weight 2020-12-22 15:35:00 146.965 kg [facility] BMI 2020-12-22 15:35:00 50.75 kg/m2 [facility] Procedures This patient has no known procedures. Plan of Care Planned Activity Planned Date Details Comments Source Future Scheduled Test 2021-02-04 00:00:00 COVID-19 Vaccination (3 MD Casas - Booster for Moderna series) [code = COVID-19 Vaccination (3 - Booster for Moderna series)] Encounters Start End Encounter Admission Attending Care Care Encounter Source Date/Time Date/Time Type Type Clinicians Facility Department ID 2021-07-11 [facility] 2021-06-28 [facility] 08[facility] Anthony [id number] [facility] 2021-06-26 Outpatient SYSTEM, [facility] [id number] 09:47:25 PROVIDER Ganganic thakur 2021-06-18 [facility] 2021-05-29 [facility] 2021-05-15 [facility]:24[facility]01 [facility] 2021-04-25 [facility] [id number] [facility] 14:26:44 Anthony [id number] [facility] 2021-04-25 Out[facility], [facility] [id number] [facility] [address] 14:26:17 Anthony [id number] [facility] 2021-04-25 Out[facility], [facility] [id number] [facility] [address] 13:47:57 Anthony [id number] [facility] 2021-04-25 [facility] 13:47[facility]15 Anthony [id number] [facility] 2021-04-25 [facility] 13:45:16 Anthony [id number] [facility] 2021-04-25 [facility] 13:36:14 Anthony [id number] [facility] 2021-04-25 [facility] 12:37:41 Anthony [id number] [facility] 2021-04-25 [facility] 12:36:39 Anthony [id number] [facility] 2021-04-25 Outpatient Altamirano, [facility] 11:54:24 Anthony [id number] [facility] 2021-04-25 [facility] 11:36:06 Anthony [id number] [facility] 2021-04-25 Outpatient Altamirano, [facility] 11:17:36 Anthony [id number] [facility] 2021-04-25 Outpatient Altamirano, [facility] 11:15:51 Anthony [id number] [facility] 2021-12-28 2021-12-28 Outpatient R NADYAHYACINTHEN [facility] [id number] Univers 08:30:00 08:30:00 [id number] ity [facility] 2021-06-26 2021-06-26 [facility] [id number] [facility]00 [facility] 2021-06-25 2021-06-25 [facility] [id number] [facility] 2021-06-22 2021-06-22 ambulatory [facility] [id number] [facility]00 [facility] 2021-06-22 2021-06-22 ambulatory [facility] [id number] [facility]00 [facility] 2021-06-20 2021-06-20 ambulatory [facility] [id number] [facility]00 [facility] 2021-06-19 2021-06-19 ambulatory [facility] [id number] [facility]00 [facility] 2021-05-29 2021-05-29 ambulatory [facility] [id number] [facility]00 [facility] 2021-04-30 2021-04-30 ambulatory [facility] [id number] [facility]00 [facility] 2021-04-25 2021-04-25 ambulatory [facility] [id number] [facility]00 [facility] 2021-04-24 2021-04-24 ambulatory [facility] [id number] [facility]00 [facility] 2021-03-15 2021-03-15 ambulatory [facility] [id number] [facility]00 [facility] 2021-01-26 2021-01-26 Outpatient ALICJA CASTRO MED [id number] ALICJA 09:48:00 23:59:00 TAMMY 2020-12-22 2020-12-22 Office Jaci Covington [facility] [id number] Univers 10:07:45 11:07:03 Visit Kobe Barrientos [id number] it y of Women's [id number] [facility] [place] [facility] [id number] [address] 2020-12-22 2020-12-22 Outpatient JACI HOYT [facility] [id number] Univers 10:30:00 10:30:00 ity [facility] 2020-12-05 2020-12-05 Outpatient [facility] [id number] [facility] 2020-12-01 2020-12-01 Outpatient [facility] [id number] [facility] 2020-11-17 2020-11-17 Outpatient [facility] [id number] [facility]00 [facility] 2020-11-07 2020-11-07 Outpatient [facility] [id number] [facility]00 [facility] 2020-11-07 2020-11-07 Outpatient [facility] [id number] [facility]00 [facility] 2020-10-10 2020-10-10 Outpatient [facility] [id number] [facility]00 [facility] 2020-06-06 2020-06-06 Outpatient [facility] [id number] [facility]00 [facility] 2020-05-22 2020-05-22 Outpatient [facility] [id number] [facility]00 [facility] 2020-04-21 2020-04-21 Outpatient [facility] [id number] [facility]00 [facility] 2020-01-11 2020-01-11 Outpatient [facility] [id number] [facility]00 [facility] 2020-01-03 2020-01-03 [id number] [facility]00 [facility] 2019-12-23 2019-12-23 [facility] [id number] 00[facility]00 [facility] 2019-11-22 2019-11-22 [facility] [id number] [facility] 13:00:00 13:00:00 [place] - [employer] [facility] Medicine Medicine Outpati ent Clinics 2019-07-08 2019-07-08 [facility] [id number] 14:30:00 14:30:00 t [place] [email or web address] [facility] Medicine Outpati ent Clinics 2019-06-08 2019-06-08 [facility] [id number] 15:06:00 15:06:00 [place] [place] [email or web address] [facility] Medicine Outpati ent Clinics 2019-06-02 2019-06-02 [facility] [id number] 16:44:00 16:44:00 t [employer] [email or web address] [facility] Medicine Outpati ent Clinics 2019-05-11 2019-05-11 [facility] [id number] 09:00:00 09:00:00 t [employer] [email or web address] [facility] Medicine Outpati ent Clinics 2019-04-30 2019-04-30 [facility] [id number] 10:15:00 10:15:00 [email or web address] [facility] Medicine Outpati ent Clinics 2019-04-14 2019-04-14 [facility] [id number] 11:50:00 11:50:00 [place] [email or web address] [facility] Medicine Outpati ent Clinics 2019-03-15 2019-03-15 [facility] [id number] [facility] 15:00:00 15:00:00 [place] [place] [email or web address] [facility] Medicine Outpati ent Clinics 2019-03-05 2019-03-05 [facility] [id number] 15:56:00 15:56:[address] [place] [address] Luke s - Drive [facility] Medicine l Medicine Outpati ent Clinics 2019-03-04 2019-03-04 [facility] [id number] 11:59:00 11:59:00 [place] [employer] Luke s - Drive [facility] l Medicine Outpati ent Clinics 2018-12-10 2018-12-10 [facility] [id number] 09:36:00 09:36:00 [place] [employer] Luke s - Drive [facility] Medicine l Medicine Outpati ent Clinics 2018-10-27 2018-10-27 [facility] [id number] 16:21:00 16:21:00 [place] [employer] LuINRIX s - Drive [facility] Medicine Outpati ent Clinics 2018-10-27 2018-10-27 [facility] [id number] 11:15:00 11:15:00 [place] [employer] s - Drive [facility] Medicine l Medicine Outpati ent Clinics 2018-06-19 2018-06-19 [facility] [id number] 11:09:00 11:09:00 [place] [employer] s - Drive [facility] Medicine Outpati ent Clinics 2018-06-16 2018-06-16 [facility] [id number] 14:43:00 14:43:00 t Specialty/U Maggi kes - Specialty rology Memori a /Urology Clinic l Clinic Outpati ent Clinics 2018-06-04 2018-06-04 [facility] [id number] 13:30:00 13:30:00 t Specialty/U Maggi kes - Specialty rology Memori a /Urology Clinic l Clinic Outpati ent Clinics 2018-05-29 2018-05-29 [facility] [id number] 10:02:00 10:02:00 [place] [employer] LuINRIX s - Drive [facility] Medicine l Medicine Outpati ent Clinics 2018-05-26 2018-05-26 [facility] [id number] [facility] 10:15:00 10:15:00 [place] [employer] s - Drive [facility] Medicine Outpati ent Clinics 2018-04-28 2018-04-28 [facility] [id number] 10:30:00 10:30:00 [place] [employer] [place] - Drive [facility] Medicine Outpati ent Clinics 2018-04-22 2018-04-22 [facility] [id number] [facility] 09:18:00 09:18:00 [place] [place] - Drive [facility] Medicine Outpati ent Clinics 2017-12-29 2017-12-29 [facility] [id number] [facility] 13:12:00 13:12:00 [place] - [employer] [facility] Medicine Outpati ent Clinics 2017-12-25 2017-12-25 [facility] [id number] 08:57:00 08:57:00 t [place] s - Drive [facility] Medicine Outpati ent Clinics 2017-11-04 2017-11-04 [facility] [id number] [facility] 08:45:00 08:45:00 t Oculeve s - Drive [facility] Medicine Outpati ent Clinics Results This patient has no known results.
--- OUTSIDE RECORDS SUMMARY | 2021-08-02 15:19 | XMS REPORT | Clinical Summary ---
:1960 Author Organization [facility] MD [facility] Address [address] [place] [address] Care Team Providers Name Role Phone Anthony Altamirano DO Unavailable Allergies Not on File Medications Not on file Active Problems Not on file Encounters Date Type Specialty Care Team Description 07/04/2021 Travel after 08/02/2020 Immunizations Name Administration Dates Next Due Moderna SARS-CoV-2 Vaccination 09/04/2020, 08/04/2020 Social History Tobacco Use Types Packs/Day Years Used Date Never Assessed Sex Assigned at Date Recorded Not on file Job Start Date Occupation Industry Not on file Not on file Not on file COVID-19 Exposure Response Date Recorded In the last month, have you been in contact with No / Unsure 07/04/2021 11:01 AM CDT someone who was confirmed or suspected to have Coronavirus / COVID-19? Last Filed Vital Signs Not on file Plan of Treatment Health Maintenance Due Date Last Done Comments COVID-19 Vaccination (3 - Booster for 02/04/2021 09/04/2020 , 08/04/2020 Moderna series) Results Not on fileafter 08/02/2020 Insurance Payer Benefit Plan / Subscriber ID Effective Dates Phone Addre ss Type Group HUMANA HUMANA GOLD [id number] 2019-Presen [address] [id number] Medicare MEDICARE PLUS MEDICARE [facility] [id number] Gia Doe Personal/Family Self 1960 [id number] [id number] Care Teams Payment Manager Relationship Specialty Start Date End Date Anthony Altamirano DO PCP - External Referring Family Practice 06/20/[address] [place] [id number]
[2021-08-02] MEDS ORDERED: ONDANSETRON 4 MG/2 ML VIAL ONE (15:50)
[2021-08-02] MEDS ORDERED: FAMOTIDINE 20 MG/2 ML VIAL IV ONE (15:50)
[2021-08-02] MEDS ORDERED: FENTANYL CITR 100 MCG/2 ML ONE (15:50)
[2021-08-02 15:55] LABS: Absolute Lymphocytes (CBC) 2.5 K/uL (0.7-4.9); Lymphocytes % 27.7 % (15.3-44.8); MPV 8.9 fL (7.6-11.3); RBC Red Blood Cell Count 5.07 M/uL (3.86-4.86)
[2021-08-02 16:05] LABS: Urine Amorphous Sediment 1+ /HPF (NONE SEEN); Urine Mucus 1+ /HPF (NONE SEEN); Urine Trichomonas PRESENT (NONE SEEN)
[2021-08-02 16:06] LABS: Urine Bacteria >50 /HPF (<20)
[2021-08-02 16:08] LABS: Albumin 3.7 g/dL (3.4-5.0); Bilirubin Total 0.4 mg/dL (0.2-1.0); Potassium 4.4 mmol/L (3.5-5.1); Protein, Total 7.7 g/dL (6.4-8.2)
[2021-08-02] MEDS ORDERED: HYDROMORPHONE HCL 1 MG/ML INJ ONE ×2 (16:17→18:55)
--- NOTE | 2021-08-02 17:03 | RAD REPORT ---
EXAM DESCRIPTION: CTStone Protocol - 08/02/2021 4:43 pm CLINICAL HISTORY: Flank pain, kidney stone suspected COMPARISON: Chest For Pe Angio dated 07/13/2017; Spine Lumbar Wo Con dated 03/11/2016 TECHNIQUE: CT of the abdomen and pelvis was performed. All CT scans are performed using dose optimization technique as appropriate and may include automated exposure control or mA/KV adjustment according to patient size. FINDINGS: Lower chest: Pacemaker leads. Liver: Hepatic steatosis. Biliary: Cholecystectomy. Stomach: No significant focal abnormality. Duodenum: No significant focal abnormality. Pancreas: No significant abnormality. Spleen: No significant abnormality. Adrenal: 3.7 cm right adrenal mass. Left adrenal nodularity. Kidney/ureter: Mild right-sided hydroureteronephrosis secondary to a 3 mm stone in the right distal u reter. No renal calculi. Retroperitoneum: No retroperitoneal adenopathy. Vascular: No aneurysm. Bowel: Normal appendix .. Peritoneum: No ascites or free air. Bladder: Grossly unremarkable. Reproductive: No adnexal masses. Bones: No acute fracture. L4-5 fusion. Other: n/a IMPRESSION: Mild right-sided hydroureteronephrosis secondary to a 3 mm stone in the right distal ure ter. Indeterminate right adrenal mass. No priors available for comparison. Recommend further evaluation [facility] nonemergent adrenal protocol MRI.
[2021-08-02] MEDS ORDERED: METRONIDAZOLE 500mg IVPB 500 MG/100 ML BAG IV ONE (17:39)
[2021-08-02] MEDS ORDERED: CEFTRIAXONE 1000 MG/VIAL ONE ×2 (17:39→17:48)
[2021-08-02] MEDS ORDERED: KETOROLAC 30 MG/ML INJ ONE (17:39)
[2021-08-02] MEDS ORDERED: NA CHLORIDE 0.9% 100 ML IV ONE (17:39)
[2021-08-02] MEDS ORDERED: MAGNESIUM SULFATE 1 gm IVPB 1 GM/100 ML BAG IV ONE (17:39)
[2021-08-02] MEDS ORDERED: TAMSULOSIN 0.4 MG SR CAP ONE (17:39)
--- NOTE | 2021-08-02 18:25 | ER ---
Nurse's Notes [facility] Name: Gia Doe Age: 61 yrs Sex: Female : 1960 Arrival Date: 08/02/2021 Time: 15:17 Bed 13 Private MD: Anthony Altamirano Diagnosis: Calculus of ureter-right Presentation: 08/02 15:23 Chief complaint: Patient states: "Since 430 this morning I have had this intense ab2 stomach pain and Im super nauseated." Pt c/o RLQ pain and nausea. Denies diarrhea. Coronavirus screen: Vaccine status: Patient reports receiving the 2nd dose of the covid vaccine. Client denies travel out of the [place] in the last 14 days. At this time, the client does not indicate any symptoms associated with coronavirus-19. Ebola Screen: Patient negative for fever greater than or equal to 101.5 degrees Fahrenheit, and additional compatible Ebola Virus Disease symptoms Patient denies exposure to infectious person. Patient denies travel to an Ebola-affected area in the 21 days before illness onset. No symptoms or risks identified at this time. Initial Sepsis Screen: Does the patient meet any 2 criteria? No. Patient's initial sepsis screen is negative. Does the patient have a suspected source of infection? No. Patient's initial sepsis screen is negative. Risk Assessment: Do you want to hurt yourself or someone else? Patient reports no desire to harm self or others. Onset of symptoms is unknown. 15:23 Method Of Arrival: Wheelchair ab2 15:23 Acuity: ANSHUL 3 ab2 Triage Assessment: 15:26 General: Appears uncomfortable, Behavior is appropriate for age, restless. Pain: ab2 Complains of pain in right lower quadrant. Neuro: Level of Consciousness is awake, alert, obeys commands, Oriented to person, place, time, situation, Appropriate for age Electronics Engineering Technologist are equal bilaterally. Cardiovascular: No deficits noted. Respiratory: Airway is patent Respiratory effort is even, unlabored, Respiratory pattern is regular, symmetrical. GI: Reports lower abdominal pain, nausea. Historical: - Allergies: 15:25 Codeine; ab2 15:25 Morphine (agitation); ab2 - PMHx: 15:25 Depression; Hypertension; Pacemaker; Thyroid problem; ab2 - Immunization history:: Adult Immunizations up to date. - Social history:: Smoking status: Patient reports the use of cigarette tobacco products, smokes one pack cigarettes per day. Screenin:56 Abuse screen: Denies threats or abuse. Nutritional screening: No deficits noted. jd3 Tuberculosis screening: No symptoms or risk factors identified. Fall Risk Ambulatory Aid- None/Bed Rest/Nurse Assist (0 pts). Gait- Normal/Bed Rest/Wheelchair (0 pts) Mental Status- Oriented to own ability (0 pts). Total Mcpherson Fall Scale indicates No Risk (0-24 pts). Assessment: 15:55 General: Appears in no apparent distress. uncomfortable, Behavior is cooperative, jd3 appropriate for age, restless. Pain: Complains of pain in right flank Pain radiates to abdomen and right lower quadrant Quality of pain is described as sharp, shooting, stabbing, tender. Neuro: Level of Consciousness is awake, alert, obeys commands, Oriented to person, place, time, situation. Cardiovascular: Capillary refill < 3 seconds Patient's skin is warm and dry. Respiratory: Airway is patent Respiratory effort is even, unlabored, Respiratory pattern is regular, symmetrical, Denies cough, shortness of breath. GI: Abdomen is round non-distended, Abd is soft X 4 quads Abdomen is tender to palpation in right upper quadrant and right lower quadrant Reports lower abdominal pain, nausea, vomiting. : Reports pain in right flank(s), urinary frequency. EENT: No signs and/or symptoms were reported regarding the EENT system. Derm: Skin is intact, Skin is dry, Skin is normal, Skin temperature is warm. Musculoskeletal: Circulation, motion, and sensation intact. Range of motion: intact in all extremities. 16:42 Reassessment: No changes from previously documented assessment. Patient and/or family jd3 updated on plan of care and expected duration. Pain level reassessed. Patient is alert, oriented x 3, equal unlabored respirations, skin warm/dry/pink. Patient states symptoms have not improved. 18:27 Reassessment: Patient appears in no apparent distress at this time. Patient and/or jd3 family updated on plan of care and expected duration. Pain level reassessed. Patient is alert, oriented x 3, equal unlabored respirations, skin warm/dry/pink. pt resting in bed, reporting pain sensation greatly decreased Patient states feeling better. Patient states symptoms have improved. 19:46 Reassessment: Scant amount emesis, PA notified, new order zofran. jd3 19:48 Reassessment: Patient denies pain at this time. Patient states feeling better. Patient jd3 states symptoms have improved. Vital Signs: 15:23 BP 147 / 85; Pulse 79; Resp 22; Temp 99.4; Pulse Ox 97% on R/A; Weight 143.34 kg; ab2 Height 5 ft. 7 in. (170.18 cm); Pain 10/10; 18:44 BP 159 / 99; Pulse 117; Resp 20 S; Pulse Ox 95% on R/A; jd3 19:45 BP 148 / 90; Pulse 98; Resp 17; Temp 97.6(TE); Pulse Ox 98% on R/A; jd3 15:23 Body Mass Index 49.49 (143.34 kg, 170.18 cm) ab2 ED Course: 15:17 Patient arrived in ED. am2 15:17 Anthony Altamirano DO is Private Physician. am2 15:20 Jonathan Bah PA is PHCP. cp 15:20 Jonathan Casas MD is Attending Physician. cp 15:25 Triage completed. ab2 15:25 Arm band placed on left wrist. ab2 15:34 Duane Cat, REBEKA is Primary Nurse. jd3 15:42 Inserted saline lock: 20 gauge in left antecubital area, using aseptic technique. Blood jd3 collected. 15:56 Patient has correct armband on for positive identification. Bed in low position. Call jd3 light in reach. Side rails up X 1. Pulse ox on. NIBP on. 16:45 CT Stone Protocol In Process Unspecified. EDMS 18:22 Armando James MD is Referral Physician. cp 19:47 No provider procedures requiring assistance completed. IV discontinued. jd3 Administered Medications: 15:54 Drug: Pepcid (famotidine) 20 mg Route: IVP; Site: left antecubital; jd3 16:50 Follow up: Response: No adverse reaction jd3 15:54 Drug: Zofran (Ondansetron) 4 mg Route: IVP; Site: left antecubital; jd3 16:50 Follow up: Response: No adverse reaction jd3 15:54 Drug: fentaNYL (PF) 25 mcg Route: IVP; Site: left antecubital; jd3 16:16 Follow up: Response: No adverse reaction; Pain is unchanged, physician notified; RASS: [facility] Alert and Calm (0) 16:16 Drug: Dilaudid (HYDROmorphone) 1 mg Route: IVP; Site: left antecubital; jd3 17:03 Follow up: Response: No adverse reaction; Pain is unchanged, physician notified; RASS: j Restless (+1) 17:41 Drug: Ketorolac 30 mg Route: IVP; Site: left antecubital; jd3 18:45 Follow up: Response: No adverse reaction jd3 17:41 Drug: Flomax (tamsulosin) 0.4 mg Route: PO; jd3 18:44 Follow up: Response: No adverse reaction jd3 17:45 Drug: Rocephin - (cefTRIAXone) 2 grams Route: IVPB; Infused Over: 30 mins; Site: left [facility] antecubital; 18:44 Follow up: Response: No adverse reaction; IV Status: Completed infusion jd3 18:17 Drug: metroNIDAZOLE 500 mg Volume: 100 ml; Route: IVPB; Infused Over: 30 mins; Site: [facility] left antecubital; 19:00 Follow up: IV Status: Completed infusion jd3 18:17 Drug: Magnesium Sulfate 1 grams Route: IVPB; Infused Over: 1 hrs; Site: left [facility] antecubital; 19:30 Follow up: IV Status: Completed infusion jd3 18:54 Drug: Dilaudid (HYDROmorphone) 1 mg Route: IVP; Site: left antecubital; jd3 19:05 Follow up: Response: Marked relief of symptoms; Pain is decreased jd3 19:37 Drug: Ondansetron 4 mg Route: PO; jd3 19:49 Follow up: Response: Marked relief of symptoms jd3 Outcome: 18:24 Discharge ordered by . guy 19:47 Discharged to home via wheelchair. jd3 19:47 Condition: good 19:47 Discharge instructions given to patient. 19:51 Patient left the ED. jd3 Signatures: Dispatcher [employer] EDMS Jonathan Bah PA PA cp Moreno, Amanda amDuane Allison RN RN jd3 Philip Bueno2 Corrections: (The following items were deleted from the chart) 15:27 15:23 Chief complaint: Patient states: "Since 430 this morning I have had this intense ab2 stomach pain and Im super nauseated." Pt c/o RLQ pain and nausea. Denies v/d ab2
--- NOTE | 2021-08-02 18:25 | EDPHYS ---
Physician Documentation [facility] Name: Gia Doe Age: 61 yrs Sex: Female : 1960 Arrival Date: 08/02/2021 Time: 15:17 Bed 13 Private MD: Adarsh [facility] ED Physician Jonathan Casas HPI: 08/02 15:35 This 61 yrs old Female presents to ER via Wheelchair with complaints of Abdominal Pain cp - RLQ. 15:35 The patient complains of pain in the right flank. The pain radiates to the right low cp back. Onset: The symptoms/episode began/occurred suddenly, this morning, awoke patient from sleep. Associated signs and symptoms: Pertinent positives: nausea, vomiting, Pertinent negatives: diarrhea, fever, pain radiating to the lower extremities. Severity of pain: in the emergency department the pain is actually worse markedly. Historical: - Allergies: 15:25 Codeine; ab2 15:25 Morphine (agitation); ab2 - PMHx: 15:25 Depression; Hypertension; Pacemaker; Thyroid problem; ab2 - Immunization history:: Adult Immunizations up to date. - Social history:: Smoking status: Patient reports the use of cigarette tobacco products, smokes one pack cigarettes per day. ROS: 15:40 Back: Positive for pain at rest, pain with movement, flank pain, on the right, Negative cp for injury or acute deformity, decreased range of motion. 15:40 Eyes: Negative for injury, pain, redness, and discharge. cp 15:40 Constitutional: Negative for body aches, chills, fever, poor PO intake. 15:40 Neck: Negative for pain with movement, pain at rest. 15:40 Cardiovascular: Negative for chest pain, edema, palpitations. 15:40 Respiratory: Negative for cough, shortness of breath, wheezing. 15:40 Abdomen/GI: Positive for abdominal pain, of the right lower abdomen, Negative for vomiting, diarrhea, constipation. 15:40 : Negative for urinary symptoms. 15:40 Neuro: Negative for altered mental status, headache, weakness. 15:40 All other systems are negative. Exam: 15:45 Constitutional: The patient appears in no acute distress, alert, awake, non-toxic, well cp developed, well nourished, diaphoretic, in obvious pain. 15:45 Head/Face: Normocephalic, atraumatic. cp 15:45 Eyes: Periorbital structures: appear normal, Conjunctiva: normal, no exudate, no injection, Sclera: no appreciated abnormality, Lids and lashes: appear normal, bilaterally. 15:45 ENT: External ear(s): are unremarkable, Nose: is normal, Mouth: Lips: moist, Oral mucosa: moist, Posterior pharynx: Airway: no evidence of obstruction, patent. 15:45 Chest/axilla: Inspection: normal. 15:45 Cardiovascular: Rate: normal, Rhythm: regular. 15:45 Respiratory: the patient does not display signs of respiratory distress, Respirations: normal, no use of accessory muscles, no retractions, labored breathing, is not present, Breath sounds: are clear throughout, no decreased breath sounds, no stridor, no wheezing. 15:45 Abdomen/GI: Inspection: obese Bowel sounds: active, all quadrants, Palpation: soft, in all quadrants, severe abdominal tenderness, in the right lower quadrant and right flank, rebound tenderness, is not appreciated, voluntary guarding, is elicited in the right flank and right lower quadrant. 15:45 Skin: cellulitis, is not appreciated, no rash present. 15:45 Neuro: Orientation: to person, place \T\ time. Mentation: is normal, Motor: moves all fours, strength is normal, Sensation: is normal, Gait: is steady. Vital Signs: 15:23 BP 147 / 85; Pulse 79; Resp 22; Temp 99.4; Pulse Ox 97% on R/A; Weight 143.34 kg; ab2 Height 5 ft. 7 in. (170.18 cm); Pain 10/10; 18:44 BP 159 / 99; Pulse 117; Resp 20 S; Pulse Ox 95% on R/A; jd3 19:45 BP 148 / 90; Pulse 98; Resp 17; Temp 97.6(TE); Pulse Ox 98% on R/A; jd3 15:23 Body Mass Index 49.49 (143.34 kg, 170.18 cm) ab2 MDM: 15:32 Patient medically screened. cp 16:00 Differential diagnosis: nephrolithiasis, pyelonephritis, UTI, appendicitis. cp 17:27 Data reviewed: vital signs, nurses notes, lab test result(s), radiologic studies, CT cp scan. 18:24 Counseling: I had a detailed discussion with the patient and/or guardian regarding: the cp historical points, exam findings, and any diagnostic results supporting the discharge/admit diagnosis, lab results, radiology results, to return to the emergency department if symptoms worsen or persist or if there are any questions or concerns that arise at home. 18:24 Response to treatment: the patient's symptoms have markedly improved after treatment, cp VSS. Pain and nausea improved. Will discharge to home for continued monitoring. 08/02 15:34 Order name: CBC with Diff; Complete Time: 15:59 cp 08/02 15:59 Interpretation: RBC 5.07; HGB 15.8; HCT 47.0. cp 08/02 15:34 Order name: CMP; Complete Time: 17:08 cp 08/02 17:08 Interpretation: Normal except: CL 109; GLUC 125; GFR 68. cp 08/02 15:34 Order name: Lipase; Complete Time: 17:08 cp 08/02 15:34 Order name: Urine Microscopic Only; Complete Time: 17:08 cp 08/02 17:09 Interpretation: Normal except: UWBC 20-50; URBC 5-10; UBACT >50; SQEPI 5-10; TRICH cp PRESENT. 08/02 16:09 Order name: Urine Culture EDMS 08/02 16:11 Order name: CT Stone Protocol; Complete Time: 17:08 cp 08/02 15:34 Order name: IV Saline Lock; Complete Time: 15:42 cp 08/02 15:34 Order name: Labs collected and sent; Complete Time: 15:42 cp Administered Medications: 15:54 Drug: Pepcid (famotidine) 20 mg Route: IVP; Site: left antecubital; jd3 16:50 Follow up: Response: No adverse reaction jd3 15:54 Drug: Zofran (Ondansetron) 4 mg Route: IVP; Site: left antecubital; jd3 16:50 Follow up: Response: No adverse reaction jd3 15:54 Drug: fentaNYL (PF) 25 mcg Route: IVP; Site: left antecubital; jd3 16:16 Follow up: Response: No adverse reaction; Pain is unchanged, physician notified; RASS: jd3 Alert and Calm (0) 16:16 Drug: Dilaudid (HYDROmorphone) 1 mg Route: IVP; Site: left antecubital; jd3 17:03 Follow up: Response: No adverse reaction; Pain is unchanged, physician notified; RASS: [facility] Restless (+1) 17:41 Drug: Ketorolac 30 mg Route: IVP; Site: left antecubital; jd3 18:45 Follow up: Response: No adverse reaction jd3 17:41 Drug: Flomax (tamsulosin) 0.4 mg Route: PO; jd3 18:44 Follow up: Response: No adverse reaction jd3 17:45 Drug: Rocephin - (cefTRIAXone) 2 grams Route: IVPB; Infused Over: 30 mins; Site: left [facility] antecubital; 18:44 Follow up: Response: No adverse reaction; IV Status: Completed infusion jd3 18:17 Drug: metroNIDAZOLE 500 mg Volume: 100 ml; Route: IVPB; Infused Over: 30 mins; Site: [facility] left antecubital; 19:00 Follow up: IV Status: Completed infusion jd3 18:17 Drug: Magnesium Sulfate 1 grams Route: IVPB; Infused Over: 1 hrs; Site: left [facility] antecubital; 19:30 Follow up: IV Status: Completed infusion jd3 18:54 Drug: Dilaudid (HYDROmorphone) 1 mg Route: IVP; Site: left antecubital; jd3 19:05 Follow up: Response: Marked relief of symptoms; Pain is decreased jd3 19:37 Drug: Ondansetron 4 mg Route: PO; jd3 19:49 Follow up: Response: Marked relief of symptoms j Disposition Summary: 08/02/21 18:24 Discharge Ordered Location: Home cp Problem: new cp Symptoms: have improved cp Condition: Stable cp Diagnosis - Calculus of ureter - right cp Followup: cp - With: Armando James MD - When: 1 week - Reason: pain continues Discharge Instructions: - Discharge Summary Sheet cp - Kidney Stones cp - Renal Colic cp Forms: - Medication Reconciliation Form cp - Thank You Letter cp - Antibiotic Education cp - Prescription Opioid Use cp Prescriptions: - Flomax 0.4 mg Oral capsule - take 1 capsule by ORAL route once daily As needed 1/2 hour following the same cp meal each day; 7 capsule; Refills: 0, Product Selection Permitted - Ultracet 37.5-325 mg Oral Tablet - take 1 tablet by ORAL route every 6 hours - for up to 5 days; do not exceed 8 cp tablets per day.; 20 tablet; Refills: 0, Product Selection Permitted - Zofran 4 mg Oral Tablet - take 1 tablet by ORAL route every 12 hours As needed; 20 tablet; Refills: 0, cp Product Selection Permitted - cefpodoxime 200 mg Oral Tablet - take 1 tablet by ORAL route every 12 hours for 7 days with food; 14 tablet; cp Refills: 0, Product Selection Permitted Signatures: Dispatcher [employer] EDMS Jonathan Bah PA PA cp Davies, Jonathon, RN RN jd3 Philip Bueno2 Corrections: (The following items were deleted from the chart) 18:19 18:18 Fluid Challenge ordered. cp cp
[2021-08-02] MEDS ORDERED: ONDANSETRON 4 MG (ODT) TAB ONE (19:39)
[2021-08-02 20:29] VITALS: BP 148/90; TEMP 97.6; O2SAT 98
== END 2021-08-02 19:51 | disposition home or self-care (01) ==
LOC: ER 15:16
DX: N20.1 Calculus of ureter (principal); I10 Essential (primary) hypertension; F17.210 Nicotine dependence, cigarettes, uncomplicated; Z95.0 Presence of cardiac pacemaker; Z88.5 Allergy status to narcotic agent
CPT/HCPCS: 96365; 96367; 87088; 85025; 87086; 36415; 87077; 87186; 81015; 83690; 80053; 76377; 74176; 96375; 99284; J3010; J3475; J1170 ×2; J3490 ×2; J2405